=== PATIENT | male | born 1955 | race Caucasian/White ===

== ENCOUNTER 2016-08-06 13:31 | Outpatient (CLI) | payer BC ==
[~2016-08-06] VITALS: Ht 172.7 cm; Wt 100.7 kg
[2016-08-06 13:40] VITALS: BP 157/94
[2016-08-06] MEDS ORDERED: LORA10TA76 PO (15:57)
[2016-08-06] MEDS ORDERED: FLUT9.9S16 NSEACH (15:57)
[2016-08-06] MEDS ORDERED: CALC-654 PO (15:57)
[2016-08-06] MEDS ORDERED: OMG1KC PO (15:57)
[2016-08-06] MEDS ORDERED: DOCU100T7 PO (15:57)
[2016-08-06] MEDS ORDERED: ASPI-586 PO (15:57)
[2016-08-06] MEDS ORDERED: SAW450CA4 PO (15:57)
[2016-08-06] MEDS ORDERED: LISI-552 PO (15:57)
[2016-08-06] MEDS ORDERED: LATA2.5D5 OU (15:57)
== END 2016-08-06 13:55 | disposition home or self-care (01) ==
LOC: PREOP 13:31
PROVIDERS: ATTEND Orthopaedic Surgery
DX: Z01.818 Encounter for other preprocedural examination (principal); Z11.2 Encounter for screening for other bacterial diseases; S43.432A Superior glenoid labrum lesion of left shoulder, initial encounter
CPT/HCPCS: 87081

== ENCOUNTER 2016-08-13 06:00 | Day surgery (SDC) | payer BC ==
--- NOTE | 2016-08-05 11:04 | HISTORY AND PHYSICAL ---
DATE OF SERVICE: 08/13/2016 REASON FOR ADMISSION: Outpatient surgery for left shoulder arthroscopy. HISTORY OF PRESENT ILLNESS: The patient is a 60-year-old right-hand dominant gentleman with complaints of pain in his left shoulder, worse with overhead activities. He underwent an MRI which revealed a superior labral tear. He has undergone treatment with rest, activity modification, anti-inflammatories and injections without relief. Due to functional impairment, the patient has elected to proceed with surgical intervention. REVIEW OF SYSTEMS: No chest pain, no shortness of breath, no dysuria. PAST MEDICAL HISTORY: Hypertension, glaucoma, allergies, aortic aneurysm, reflux. PAST SURGICAL HISTORY: Cholecystectomy. FAMILY HISTORY: Significant for coronary artery disease. PRIMARY CARE: Dr. Babatunde Diehl. MEDICATIONS: Lisinopril, aspirin, fish oil, Naprosyn, Flonase, Claritin, ranitidine, saw palmetto. ALLERGIES: No known drug allergies. SOCIAL HISTORY: The patient is a former smoker. Denies alcohol use. PHYSICAL EXAMINATION: GENERAL: The patient is well-developed, well-nourished, in no acute distress. HEENT: Normocephalic, atraumatic. Pupils are equal, round and reactive to light. Oropharynx is clear. NECK: Supple. No lymphadenopathy. LUNGS: Clear to auscultation bilaterally. HEART: Regular rate and rhythm. ABDOMEN: Soft, nontender, nondistended. EXTREMITIES: Left shoulder demonstrates no atrophy, no skin lesions are noted. He has a mildly positive Neer and Mcfarland sign. No gross weakness with abduction, external or internal rotation. He has positive [place]'s maneuver, which reproduces his symptoms. IMPRESSION: Left shoulder superior labral anterior posterior tear. PLAN: Left shoulder arthroscopic biceps tenotomy. The risks, benefits, options, ramifications and recovery were discussed at length with the patient. He understands and wishes to proceed. Job ID: [id number] DocumentID: [id number] Dictated Date: 08/05/2016 09:38:45 Television Engineering Teacher Date: 08/05/2016 11:04:20 Dictated By: TARA MERCEDES MD
[~2016-08-13] VITALS: Ht 172.7 cm; Wt 100.7 kg
[~2016-08-13 06:00] MED LIST: ASPI-586 PO; CALC-654 PO; DOCU100T7 PO; FLUT9.9S16 NSEACH; LATA2.5D5 OU; LISI-552 PO; LORA10TA76 PO; OMG1KC PO; SAW450CA4 PO
[2016-08-13] MEDS ORDERED: LACTATED RINGERS 1,000 ML IV PRN (06:41)
[2016-08-13] MEDS ORDERED: DEXAMETHASONE PF 10 MG/ML (DECADRON) VIAL ONE (06:42)
[2016-08-13] MEDS ORDERED: LACTATED RINGERS 1,000 ML IV ONE (06:42)
[2016-08-13] MEDS ORDERED: MIDAZOLAM 2 MG/2 ML (VERSED) VIAL ONE (06:42)
[2016-08-13] MEDS ORDERED: proPOfol 200 MG/20 ML (DIPRIVAN) VIAL IV ONE (06:42)
[2016-08-13] MEDS ORDERED: LIDOCAINE PF 2% 10 ML (XYLOCAINE) AMP ONE (06:42)
[2016-08-13] MEDS ORDERED: fentaNYL INJECTION 100 MCG/2 ML AMP ONE (06:42)
[2016-08-13] MEDS ORDERED: ONDANSETRON 4 MG/2 ML (SDV) Z0FRAN ONE ×2 (06:42→08:47)
[2016-08-13] MEDS ORDERED: ROCURONIUM 50 MG/5 ML (ZEMURON) VIAL IV ONE (06:42)
[2016-08-13] MEDS ORDERED: NS (IVPB) 50 ML ONE (07:12)
[2016-08-13] MEDS ORDERED: ceFAZolin 1,000 MG (ANCEF) VIAL ONE (07:12)
[2016-08-13] MEDS ORDERED: BUPIVACAINE 0.25% 30 ML (SENSORCAINE) VIAL ONE (07:17)
[2016-08-13] MEDS ORDERED: morphine PF (DURAMORPH) 10 MG/10 ML AMP ONE (07:17)
--- NOTE | 2016-08-13 07:29 | Progress Note-Pre Operative ---
Pre-Operative Progress Note H&P Reviewed The H&P was reviewed, patient examined and no changes noted. Date H&P Reviewed: August 13, 2016 Time H&P Reviewed: 07:11 Pre-Operative Diagnosis: left shoulder SLAP tear TARA MERCEDES MD August 13, 2016 07:29
--- NOTE | 2016-08-13 07:30 | Progress Note-Post Operative ---
Post-Operative Progess Note Surgeon (s)/Medical Director/Head Team Physician (s) Surgeon TARA MERCEDES MD Medical Director/Head Team Physician: none Pre-Operative Diagnosis left shoulder SLAP tear and impingement Post-Operative Diagnosis left shoulder SLAP tear, labral tear and impingement Procedure & Operative Findings Date of Procedure 08/13/16 Procedure Performed/Findings left shoulder arthroscopic biceps tenotomy, labral debridement and acromioplasty Anesthesia Type GETA Estimated Blood Loss Estimated blood loss (mL): minimal Specimens/Packing Specimens Removed none Packing: none TARA MERCEDES MD August 13, 2016 07:30
[2016-08-13 07:34] VITALS: BP 167/101
[2016-08-13] MEDS ORDERED: oxyCODONE/APAP 5/325MG (PERCOCET 5) TABLET PO PRN (07:45)
[2016-08-13] MEDS ORDERED: ceFAZolin 1 GM/NS 50 ML IVPB IV ONE ×2 (08:00)
[2016-08-13] MEDS ORDERED: GLYCOPYRROLATE 0.2 MG/ML (ROBINUL) 2 ML VIAL ONE (08:14)
[2016-08-13] MEDS ORDERED: NEOSTIGMINE (BLOXIVERZ ) 1 MG/1ML 10 ML VIAL ONE (08:14)
[2016-08-13] MEDS ORDERED: SEVOFLURANE (ULTANE) 15 ML INHAL SOLN ONE (08:38)
[2016-08-13] MEDS ORDERED: ONDANSETRON 4 MG/2 ML (SDV) Z0FRAN IVP PRN (08:45)
[2016-08-13] MEDS ORDERED: morphine INJ 10 MG/ML 1ML (SYR OR VIAL) ONE (08:47)
[2016-08-13] MEDS: morphine INJ 10 MG/ML 1ML (SYR OR VIAL) IVP PRN ×2 (08:58→09:06)
[2016-08-13 09:30] VITALS: BP 122/90
[2016-08-13 10:00] VITALS: BP 128/87
[2016-08-13 10:30] VITALS: BP 122/87
[2016-08-13] MEDS ORDERED: OXYC-471 PO (10:35)
--- NOTE | 2016-08-13 14:15 | OPERATIVE REPORT ---
DATE OF SERVICE: 08/13/2016 PREOPERATIVE DIAGNOSES: 1. Left shoulder slap tear. 2. Left shoulder impingement. POSTOPERATIVE DIAGNOSES: 1. Left shoulder slap tear. 2. Left shoulder impingement. 3. Left shoulder labral tear. PROCEDURES PERFORMED: 1. Left shoulder arthroscopic biceps tenotomy. 2. Left shoulder arthroscopic labral debridement. 3. Left shoulder arthroscopic acromioplasty. SURGEONS: Nathan Mercedes MD PULVERIZER: None. ANESTHESIA: General endotracheal by Tia Johnson CRNA ESTIMATED BLOOD LOSS: Minimal. DRAINS: None. COMPLICATIONS: None. POSTOPERATIVE PLAN: Sling for comfort with progressive range of motion as symptoms allow. The patient is transported to the recovery room, awake and in stable condition. STATEMENT OF MEDICAL NECESSITY: The patient is a 60-year-old, right hand dominant gentleman with complaints of left shoulder pain, worse with overhead activities. He had a positive [place]'s maneuver, positive Neer and Hawkin sign. An MRI revealed a type 2 slap tear and findings consistent with impingement and due to failure to improve with conservative measures and functional impairment, the patient elected to proceed with surgical intervention. Examination under anesthesia revealed forward elevation of 170 degrees, external rotation 90 degrees and internal rotation of 80 degrees. Arthroscopic findings demonstrate a type 2 slap tear. There was a flap tear at the anterior labrum from the 10 to 11 o'clock positions. The remainder of the labrum was intact. There was no significant glenoid or humeral head articular wear. The subacromial space demonstrates dense bursitis with sloping of the anterolateral acromion. No rotator cuff tear was noted on the bursal or articular side. PROCEDURE IN DETAIL: After risks and benefits of procedure were discussed and questions were answered, an informed consent was signed, placed on chart. The operative site was confirmed in the preoperative holding area initialed by the surgeon. The patient was then transferred to the operating room and after adequate levels of general endotracheal anesthetic were obtained, a timeout was called, confirmed the operative site. Examination under anesthesia was performed with above findings noted. The left shoulder and upper extremity were prepped and draped in the usual sterile fashion. Shoulder joint was injected with 20 mL of fluid as was the subacromial space. Standard posterior portal was placed and under direct visualization, the anterior portal was created in the interval between the biceps, subscapularis and glenoid. A diagnostic arthroscopy was carried out with above findings noted. The biceps anchor was released and the stump was debrided with a shaver. The anterior labral flap was debrided with the shaver back to stable edges. The scope was then redirected into the subacromial space and the lateral portal was created. Bursectomy was performed and the acromion was planed to a flat type 1 acromion. Subacromial space was copiously irrigated. Port sites were closed with 3-0 nylon, simple interrupted fashion. Shoulder was injected with Duramorph. Port sites infiltrated with plain Marcaine and soft dressing and sling were applied. The patient was transferred through recovery room, awake and in stable condition. Job ID: [id number] DocumentID: [id number] Dictated Date: 08/13/2016 08:32:52 Atmospheric Physicist Date: 08/13/2016 13:32:30 Dictated By: NATHAN MERCEDES MD
== END 2016-08-13 11:00 | disposition home or self-care (01) ==
LOC: SDC 06:00
PROVIDERS: ATTEND Orthopaedic Surgery
DX: S43.432A Superior glenoid labrum lesion of left shoulder, initial encounter (principal); M25.812 Other specified joint disorders, left shoulder; I10 Essential (primary) hypertension; I71.9 Aortic aneurysm of unspecified site, without rupture; K21.9 Gastro-esophageal reflux disease without esophagitis; Z79.899 Other long term (current) drug therapy

== ENCOUNTER → 2017-06-09 | Outpatient (CLI) | payer BC ==
[~2017-06-09] MED LIST changes: +OXYC-471 PO; -SAW450CA4 PO; +SAW450CA7 PO
== END ==
LOC: CARD 10:43
PROVIDERS: ATTEND Family Medicine
DX: R07.9 Chest pain, unspecified (principal); I27.20 Pulmonary hypertension, unspecified; I34.0 Nonrheumatic mitral (valve) insufficiency
CPT/HCPCS: 93306

== ENCOUNTER → 2017-10-27 | Outpatient (CLI) | payer BC ==
--- NOTE | 2017-10-27 10:40 | Diagnostic Imaging Report ---
CHEST PA/LAT (2 VIEW) Indication: Shortness of air on exertion. Comparison: None available. Findings: No focal pneumonic consolidation, pleural effusion or pneumothorax. Normal heart size and pulmonary vasculature. Impression: No acute cardiopulmonary process. Attempt was made to call report to the provider number ([phone]) but this number is disconnected. Dictated by: Dictated on workstation # [id number]
== END ==
LOC: RAD 10:09
PROVIDERS: ATTEND Nurse Practitioner Family
DX: R07.9 Chest pain, unspecified (principal); R06.00 Dyspnea, unspecified
CPT/HCPCS: 71046

== ENCOUNTER 2018-02-05 06:12 | Outpatient (CLI) | payer BC ==
[~2018-02-05] VITALS: Ht 172.7 cm; Wt 86.2 kg
[2018-02-05] MEDS ORDERED: VALS320T15 PO (14:56)
[2018-02-05] MEDS ORDERED: AMLO2.5T3 PO (14:56)
== END 2018-02-05 15:03 | disposition home or self-care (01) ==
LOC: PREOP 06:12
PROVIDERS: ATTEND Surgery
DX: Z01.818 Encounter for other preprocedural examination (principal)

== ENCOUNTER 2018-02-10 09:17 | Day surgery (SDC) | payer BC ==
[~2018-02-10] VITALS: Ht 172.7 cm; Wt 86.2 kg
[~2018-02-10 09:17] MED LIST changes: +AMLO2.5T3 PO; +VALS320T15 PO
--- NOTE | 2018-02-10 09:20 | Progress Note-Pre Operative ---
Pre-Operative Progress Note H&P Reviewed The H&P was reviewed, patient examined and no changes noted. Date Seen by Provider: Feb 04, 2018 Time Seen by Provider: 11:20 Date H&P Reviewed: Feb 10, 2018 Time H&P Reviewed: 09:20 Pre-Operative Diagnosis: sebaceous cysts left side of neck ALLISON PERRY MD Feb 10, 2018 09:20
--- OUTSIDE RECORDS SUMMARY | 2018-02-10 09:21 | XMS REPORT ---
Author Author Christiano Flannery Organization [facility] Address [address] [place], [place] [address] Care Team Providers Care Tower Climber Name Role Phone Christiano Flannery PCP Unavailable Veronica Diehl PreferredProvider Allergies and Adverse Reactions Name Reaction Notes NO KNOWN DRUG ALLERGIES Plan of Treatment Planned Activity Comments Planned Date Planned Time Plan/Goal PSA TOTAL 09/24/2016 12:00 AM Medications Active Name Start Date Estimated Completion Date SIG Comments aspirin 81 mg oral tablet,delayed release (DR/EC) take 1 tablet (81 mg) by oral route once daily for 30 days lisinopril 20 mg oral tablet take 1 tablet (20 mg) by oral route once daily naproxen 500 mg oral tablet take 1 tablet (500 mg) by oral route 2 times per day with food Fish Oil 300-1,000 mg oral capsule take 1 capsule by oral route daily latanoprost 0.005 % ophthalmic drops instill 1 drop into both eyes by ophthalmic route once daily in the evening Proctofoam HC 1-1 % rectal foam 12/03/2015 insert 1 applicatorful by rectal route 2 times a day Name Start Date Expiration Date SIG Comments lisinopril-hydrochlorothiazide 20-12.5 mg oral tablet 05/04/2013 10/31/2013 take 2 tablets by oral route daily for 30 days Problem List Description Status Onset Hypertension Active 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 Abnormal PSA Active 11/07/2015 Rectal pain Active 12/04/2015 Abnormal PSA Active 12/24/2015 Elevated prostate specific antigen [PSA] Active 09/24/2016 Vital Signs Date Time BP-Sys(mm[Hg] BP-Chaya(mm[Hg]) HR(bpm) RR(rpm) Temp WT HT HC BMI BSA BMI Percentile O2 Sat(%) 09/24/2016 9:44:00 AM 152 mmHg 104 mmHg 60 bpm 18 rpm 225 lbs 68 in 34.21 kg/m2 2.21 m2 100 % 04/15/2016 8:49:00 AM 142 mmHg 72 mmHg 55 bpm 18 rpm 98.7 F 225 lbs 68 in 34.2108 kg/m 2.2128 m 99 % 12/24/2015 11:00:00 AM 158 mmHg 100 mmHg 61 bpm 18 rpm 98.3 F 225 lbs 68 in 34.21 kg/m2 2.21 m2 98 % 12/03/2015 9:09:00 AM 142 mmHg 96 mmHg 50 bpm 20 rpm 96.6 F 100 % 11/07/2015 11:01:00 AM 160 mmHg 102 mmHg 55 bpm 18 rpm 97.1 F 225 lbs 68 in 34.21 kg/m2 2.21 m2 100 % 10/08/2015 10:25:00 AM 190 mmHg 112 mmHg 52 bpm 20 rpm 97 F 228 lbs 68 in 34.6669 kg/m 2.2275 m 100 % 10/08/2015 10:25:00 AM 182 mmHg 114 mmHg 05/18/2013 2:48:00 PM 118 mmHg 70 mmHg 05/04/2013 9:00:00 AM 160 mmHg 100 mmHg 54 bpm 18 rpm 98.2 F 216 lbs 68 in 32.84 kg/m2 2.17 m2 99 % 09/24/2012 8:28:00 AM 148 mmHg 98 mmHg 65 bpm 16 rpm 97.1 F 220 lbs 98 % 09/15/2012 2:17:00 PM 172 mmHg 96 mmHg 59 bpm 16 rpm 97.5 F 223 lbs 68.75 in 33.17 kg/m2 2.22 m2 99 % Social History Name Description Comments Single associates degree Tobacco Current every day smoker Denies illicit substance abuse Active but no formal exercise Sales Did not serve in Children Lives with roommate History of Procedures Date Ordered Description Order Status 11/07/2015 1:01 PM URINALYSIS AUTO W/O SCOPE Reviewed 12/24/2015 11:50 AM URINALYSIS AUTO W/O SCOPE Reviewed 04/07/2016 12:00 AM ASSAY OF PSA TOTAL Reviewed 09/24/2016 10:56 AM URINALYSIS AUTO W/O SCOPE Reviewed 09/15/2012 12:00 AM COMPREHEN METABOLIC PANEL Reviewed 09/15/2012 12:00 AM LIPID PANEL Reviewed 09/15/2012 12:00 AM ASSAY THYROID STIM HORMONE Reviewed 09/15/2012 12:00 AM COMPLETE CBC W/AUTO DIFF WBC Reviewed 09/15/2012 12:00 AM ELECTROCARDIOGRAM COMPLETE Reviewed 05/18/2013 12:00 AM Blood Pressure Check-no charge Reviewed Results Summary Date and Description Results 09/15/2012 2:23 PM Colonoscopy-Women and Men over 50 Declined 09/15/2012 3:00 PM WBC 9.1 RBC 5.27 HGB 15.40 g/dLHCT 43.50 %MCV 83.0 fLMCH 29.20 pgMCHC 35.40 g/dLRDW SD 42 RDW CV 13.90 %MPV 11.10 fLPLT 210 NRBC# 0.00 NRBC% 0.0 %NEUT 58.10 %%LYMP 32.50 %%MONO 6.40 %%EOS 2.60 %%BASO 0.40 %#NEUT 5.29 #LYMP 2.96 #MONO 0.58 #EOS 0.24 #BASO 0.04 MANUAL DIFF NOT IND GLUCOSE 91.0 mg/dLSODIUM 139.0 mmol/LPOTASSIUM 3.70 mmol/LCHLORIDE 104.0 mmol/LCO2 23.0 mmol/LBUN 18.0 mg/dLCREATININE 0.90 mg/dLSGOT/AST 14.0 IU/LSGPT/ALT 17.0 IU/ LALK PHOS 61.0 IU/LTOTAL PROTEIN 7.50 g/dLALBUMIN 4.30 g/dLTOTAL BILI 0.80 mg/ dLCALCIUM 9.60 mg/dLAGE 56 GFR NonAA 87 GFR AA 105 eGFR 60 eGFR AA* 60 TRIGLYCERIDES 110.0 mg/dLCHOLESTEROL 159.0 mg/dLHDL 47.0 mg/dLTOT CHOL/HDL 3.4 LDL (CALC) 90.0 mg/dLTSH 2.180 uIU/mL 11/07/2015 1:01 PM Clarity Ur CLEAR Color Ur --------- Glucose Ur-sCnc -VE Bilirub Ur Ql Strip -VE Ketones Ur Ql Strip -VE Sp Gr Ur Qn 1020 Hgb Ur Ql Strip -VE pH Ur-LsCnc 6.0 Prot Ur Ql Strip -VE Urobilinogen Ur-mCnc -VE Nitrite Ur Ql Strip -VE WBC Est Ur Ql Strip RARE 12/24/2015 11:50 AM Clarity Ur CLEAR Color Ur Glucose Ur-sCnc -VE Bilirub Ur Ql Strip -VE Ketones Ur Ql Strip -VE Sp Gr Ur Qn 1015 Hgb Ur Ql Strip + pH Ur-LsCnc 6.0 04/07/2016 12:10 PM PSA TOTAL 6.940 ng/mL 09/24/2016 10:56 AM Clarity Ur CLEAR Color Ur -VE Glucose Ur-sCnc -VE Bilirub Ur Ql Strip -VE Ketones Ur Ql Strip -VE Sp Gr Ur Qn 1-15 Hgb Ur Ql Strip +++ pH Ur-LsCnc 6.0 Prot Ur Ql Strip -VE Urobilinogen Ur-mCnc -VE Nitrite Ur Ql Strip - VE WBC Est Ur Ql Strip -VE History Of Immunizations Name Date Admin Mfg Name Mfg Code Trade Name Lot# Route Inj Vis Given Vis Pub CVX Influenza 02/22/2014 Not Entered NE Afluria Not Entered Not Entered 03/23/201611/08/2013 141 History of Past Illness Name Date of Onset Comments Hypertension Adenofibromatous hypertrophy of prostate 11/07/2015 Abnormal PSA 12/24/2015 Rectal pain 12/04/2015 Elevated prostate specific antigen [PSA] 09/24/2016 Essential Hypertension Sep 15 2012 2:25PM Fatigue Sep 15 2012 2:25PM Chest Pain Sep 15 2012 2:25PM Screening for Ischemic Heart Disease Sep 15 2012 2:25PM Essential Hypertension Sep 24 2012 8:30AM Fatigue Sep 24 2012 8:30AM Hypertension May 04 2013 9:02AM Hypertension, Benign Essential May 18 2013 2:48PM Colon Cancer Screening Oct 08 2015 10:26AM Constipation Oct 08 2015 10:26AM Abnormal PSA Nov 07 2015 11:04AM Adenofibromatous hypertrophy of prostate Nov 07 2015 11:04AM Elevated PSA Nov 28 2015 8:23AM Abnormal PSA Nov 28 2015 11:57AM Rectal pain Nov 28 2015 11:57AM Adenofibromatous hypertrophy of prostate Nov 28 2015 11:57AM Anal Fissure Dec 03 2015 9:10AM Adenofibromatous hypertrophy of prostate Dec 24 2015 11:04AM Abnormal PSA Dec 24 2015 11:04AM Adenofibromatous hypertrophy of prostate Apr 07 2016 7:53AM Abnormal PSA Apr 07 2016 7:53AM Abnormal PSA Apr 15 2016 8:52AM Adenofibromatous hypertrophy of prostate Apr 15 2016 8:52AM Elevated prostate specific antigen [PSA] Sep 24 2016 9:47AM Adenofibromatous hypertrophy of prostate Sep 24 2016 9:47AM BPH (benign prostatic hypertrophy) Sep 24 2016 10:08AM Elevated PSA Sep 24 2016 10:08AM Payers Insurance Name Company Name Plan Name Plan Number Policy Number Policy Group Number [id number]/A History of Encounters Visit Date Visit Type Provider 09/24/2016 Office visit V Haroon Flannery MD 04/15/2016 Office visit V Haroon Flannery MD 12/24/2015 Office visit V Haroon Flannery MD 12/14/2015 Hospital V Haroon Flannery MD 12/03/2015 Office visit 12/03/2015 Office visit Nathan Kramer MD 11/28/2015 Procedures V Haroon Flannery MD 11/08/2015 Hospital Nathan Kramer MD 11/07/2015 Office visit V Haroon Flannery MD 10/08/2015 Office visit Nathan Kramer MD 05/18/[address] MD 05/04/[address] MD 09/24/2012 Office visit Sugey Pham MD 09/15/2012 Voided Sugey Pham MD 09/15/2012 Office visit Sugey Pham MD 09/15/2012 [facility] Reema Henriquez MD
--- OUTSIDE RECORDS SUMMARY | 2018-02-10 09:22 | XMS REPORT ---
Author Author Christiano Flannery Organization [facility] Address [address] [place], [place] [address] Care Team Providers Care Behavioral Scientist Name Role Phone Christiano Flannery PCP Unavailable Veronica Diehl PreferredProvider Allergies and Adverse Reactions Name Reaction Notes NO KNOWN DRUG ALLERGIES Plan of Treatment Planned Activity Comments Planned Date Planned Time Plan/Goal PSA TOTAL 03/18/2017 12:00 AM Medications Active Name Start Date [...] AM ASSAY OF PSA TOTAL Reviewed 09/24/2016 12:00 AM ASSAY OF PSA TOTAL Reviewed [...] Results Summary Date and Description Results 09/15/2012 3:00 PM WBC 9.1 RBC 5.27 [...] 12:10 PM PSA TOTAL 6.940 ng/mL 09/24/2016 10:30 AM PSA TOTAL 6.390 ng/mL 09/24/2016 10:56 AM Clarity Ur CLEAR [...] 10:08AM Elevated PSA Sep 24 2016 10:08AM Adenofibromatous hypertrophy of prostate Mar 18 2017 10:04AM Elevated PSA Mar 18 2017 10:04AM Payers Insurance Name Company Name Plan Name Plan Number Policy Number Policy Group Number [facility] Date [id number] N/A History of Encounters Visit Date Visit Type Provider 09/24/2016 Office visit V Haroon Flannery MD 04/15/2016 Office visit V Haroon Flannery MD 12/24/2015 Office visit V Haroon Flannery MD 12/14/2015 Hospital V Haroon Flannery MD 12/03/2015 Office visit 12/03/2015 Office visit Nathan Kramer MD 11/28/2015 Procedures V Haroon Flannery MD 11/08/2015 [facility] Nathan Kramer MD 11/07/2015 Office visit V Haroon Flannery MD 10/08/2015 Office visit Nathan Kramer MD 05/18/[address] MD 05/04/[address] MD 09/24/2012 Office visit Sugey Pham MD 09/15/2012 Voided Sugey Pham MD 09/15/2012 Office visit Sugey Pham MD 09/15/2012 [facility] Reema Henriquez MD
--- OUTSIDE RECORDS SUMMARY | 2018-02-10 09:22 | XMS REPORT ---
Author Author Christiano Flannery Organization [facility] Address [address] [place], [place] [id number] Care Team Providers Care Fruit Or Nut Picker Name Role Phone Christiano Flannery PCP Unavailable Veronica Diehl PreferredProvider Allergies and Adverse Reactions Name Reaction Notes NO KNOWN DRUG ALLERGIES Plan of Treatment Not available. Medications Active Name Start Date Estimated Completion [...] Elevated prostate specific antigen [PSA] Active 09/24/2016 Abnormal prostate specific antigen test Active 03/27/2017 Vital Signs Date Time BP-Sys(mm[Hg] BP-Chaya(mm[Hg]) HR(bpm) RR(rpm) Temp WT HT HC BMI BSA BMI Percentile O2 Sat(%) 03/27/2017 8:01:00 AM 132 mmHg 94 mmHg 62 bpm 18 rpm 215 lbs 68 in 32.69 kg/m2 2.16 m2 97 % 09/24/2016 9:44:00 AM 152 mmHg 104 mmHg 60 bpm 18 rpm 225 lbs 68 in 34.2108 kg/m 2.2128 m 100 % 04/15/2016 8:49:00 AM 142 mmHg 72 mmHg 55 bpm 18 rpm 98.7 F 225 lbs 68 in 34.21 kg/m2 2.21 m2 99 % 12/24/2015 11:00:00 AM 158 mmHg 100 mmHg 61 bpm 18 rpm 98.3 F 225 lbs 68 in 34.2108 kg/m 2.2128 m 98 % 12/03/2015 9:09:00 AM 142 mmHg 96 mmHg 50 bpm 20 rpm 96.6 F 100 % 11/07/2015 11:01:00 AM 160 mmHg 102 mmHg 55 bpm 18 rpm 97.1 F 225 lbs 68 in 34.2108 kg/m 2.2128 m 100 % 10/08/2015 10:25:00 AM 190 mmHg 112 mmHg 52 bpm 20 rpm 97 F 228 lbs 68 in 34.67 kg/m2 2.23 m2 100 % 10/08/2015 10:25:00 AM 182 mmHg [...] 10:56 AM URINALYSIS AUTO W/O SCOPE Reviewed 03/18/2017 12:00 AM ASSAY OF PSA TOTAL Reviewed 03/27/2017 11:13 AM URINALYSIS AUTO W/O SCOPE Reviewed 09/15/2012 [...] VE WBC Est Ur Ql Strip -VE 03/18/2017 11:40 AM PSA TOTAL 6.410 ng/mL 03/27/2017 11:13 AM Clarity Ur CLEAR Color Ur -- Glucose Ur-sCnc -VE Bilirub Ur Ql Strip -VE Ketones Ur Ql Strip -VE Sp Gr Ur Qn 1015 Hgb Ur Ql Strip -VE pH Ur- LsCnc 5.5 Prot Ur Ql Strip -VE Urobilinogen Ur-mCnc -VE Nitrite Ur Ql Strip -VE WBC Est Ur Ql Strip -VE History Of Immunizations Name Date Admin [facility] Name [facility] Code Trade Name Lot# Route Inj Vis Given Vis Pub CVX Influenza 02/22/2014 Not Entered NE Afluria Not Entered Not Entered 03/23/201711/08/2013 141 History of Past Illness Name Date of Onset Comments Hypertension Adenofibromatous hypertrophy of prostate 11/07/2015 Abnormal PSA 12/24/2015 Rectal pain 12/04/2015 Elevated prostate specific antigen [PSA] 09/24/2016 Abnormal prostate specific antigen test 03/27/2017 Essential Hypertension Sep 15 2012 2:25PM Fatigue [...] 10:04AM Elevated PSA Mar 18 2017 10:04AM Abnormal prostate specific antigen test Mar 27 2017 8:04AM Adenofibromatous hypertrophy of prostate Mar 27 2017 8:04AM Payers Insurance Name Company Name Plan Name Plan Number Policy Number Policy Group Number [id number]/A History of Encounters Visit Date Visit Type Provider 03/27/2017 Office visit Christiano Flannery MD 09/24/2016 Office visit Christiano Flannery MD 04/15/2016 Office visit Christiano Flannery MD 12/24/2015 Office visit Christiano Flannery MD 12/14/2015 Hospital Christiano Flannery MD 12/03/2015 Office visit 12/03/2015 Office visit Nathan Kramer MD 11/28/2015 Procedures Christiano Flannery MD 11/08/2015 [facility] Nathan Kramer MD 11/07/2015 Office visit Christiano Flannery MD 10/08/2015 Office visit Nathan Kramer MD 05/18/[address] MD 05/04/[address] MD 09/24/2012 Office visit Sugey Pham MD 09/15/2012 Voided Sugey Pham MD 09/15/2012 Office visit Sugey Pham MD 09/15/2012 [facility] Nadeem Henriquez MD
--- OUTSIDE RECORDS SUMMARY | 2018-02-10 09:23 | XMS REPORT ---
Author Author Christiano Flannery Organization [facility] Address [address] [place], [place] [address] Care Team Providers Care Button Maker And Installer Name Role Phone Christiano lFannery PCP Unavailable Veronica Diehl PreferredProvider Allergies and [...] pain Active 12/04/2015 Abnormal PSA Active 12/24/2015 Vital Signs Date Time BP-Sys(mm[Hg] BP-Chaya(mm[Hg]) HR(bpm) RR(rpm) Temp WT HT HC BMI BSA BMI Percentile O2 Sat(%) 04/15/2016 8:49:00 AM 142 mmHg 72 mmHg [...] rpm 97.5 F 223 lbs 68.75 in 33.1709 kg/m 2.22 m2 99 % Social History Name [...] 12:00 AM ASSAY OF PSA TOTAL Reviewed 09/15/2012 12:00 AM COMPREHEN METABOLIC PANEL [...] 04/07/2016 12:10 PM PSA TOTAL 6.940 ng/mL History Of Immunizations Name Date Admin Mfg Name Mfg Code Trade Name Lot# Route Inj Vis Given Vis Pub CVX Influenza 02/22/2014 Not Entered NE Afluria Not Entered Not Entered 03/23/201611/08/2013 141 History of Past Illness Name Date of Onset Comments Hypertension Adenofibromatous hypertrophy of prostate 11/07/2015 Abnormal PSA 12/24/2015 Rectal pain 12/04/2015 Essential Hypertension Sep 15 2012 2:25PM Fatigue [...] hypertrophy of prostate Apr 15 2016 8:52AM Payers Insurance Name Company Name Plan Name Plan Number Policy Number Policy Group Number [id number] History of Encounters Visit Date Visit Type Provider 04/15/2016 Office visit Christiano Flannery MD 12/24/2015 Office visit Christiano Flannery MD 12/14/2015 Hospital Christiano Flannery MD 12/03/2015 Office visit 12/03/2015 Office visit Nathan Kramer MD 11/28/2015 Procedures Christiano Flannery MD 11/08/2015 Hospital Nathan Kramer MD 11/07/2015 Office visit Christiano Flannery MD 10/08/2015 Office visit Nathan Kramer MD 05/18/[address] MD 05/04/[address] MD 09/24/2012 Office visit Sugey Pham MD 09/15/2012 Voided Sugey Pham MD 09/15/2012 Office visit Sugey Pham MD 09/15/2012 [facility] Nadeem Henriquez MD
--- OUTSIDE RECORDS SUMMARY | 2018-02-10 09:24 | XMS REPORT ---
Author Author Christiano Flannery Organization [facility] Address [address] [place], [place] [id number] Care Team Providers Care Elevated Work Platform Operator Name Role Phone Christiano Flannery PCP Unavailable [...] Number Policy Group Number Start Date [facility]BS [facility] [id number] N/A History of Encounters Visit Date Visit Type Provider 09/24/2016 Office visit V Haroon Flannery MD 04/15/2016 Office visit Christiano Flannery MD 12/24/2015 Office visit Christiano Flannery MD 12/14/2015 Hospital Christiano Flannery MD 12/03/2015 Office visit 12/03/2015 Office visit Nathan Kramer MD 11/28/2015 Procedures Christiano Flannery MD 11/08/2015 [facility] Nathan Kramer MD 11/07/2015 Office visit Christiano Flannery MD 10/08/2015 Office visit Nathan Kramer MD 05/18/2013 Nurse visit Adeola Wya MD 05/04/[address] MD 09/24/2012 Office visit Sugey Pham MD 09/15/2012 Voided Sugey Pham MD 09/15/2012 Office visit Sugey Pham MD 09/15/2012 [facility] Nadeem Henriquez MD
[2018-02-10] MEDS ORDERED: BUP/EPI 0.5% 1:200,000 (SENSORCAINE) 30 ML VIAL ONE (09:26)
[2018-02-10] MEDS ORDERED: ONDANSETRON 4 MG/2 ML (SDV) Z0FRAN ONE (09:27)
[2018-02-10] MEDS ORDERED: LIDOCAINE PF 2% 5 ML (XYLOCAINE) VIAL ONE (09:27)
[2018-02-10] MEDS ORDERED: proPOfol 200 MG/20 ML (DIPRIVAN) VIAL IV ONE (09:27)
[2018-02-10] MEDS ORDERED: fentaNYL INJECTION 100 MCG/2 ML AMP ONE (09:28)
[2018-02-10] MEDS ORDERED: MIDAZOLAM 2 MG/2 ML (VERSED) VIAL ONE (09:28)
--- OUTSIDE RECORDS SUMMARY | 2018-02-10 09:28 | XMS REPORT | CCD ---
Author Author [facility] Organization [facility] Address [address] [place] [address] Phone Care Team Providers Care Managed Care Nurse Name Role Phone PP Unavailable CCM Unavailable Summary Purpose Interface Exchange Insurance Providers Payer name Policy type / Coverage type Covered constitution party ID Effective Begin Date Effective End Date Blue Cross Blue Shield [facility] Blue Cross/Blue Shield [id number] 2018 Unknown Family history Grandmother Diagnosis Age At Onset Stroke Unknown Mother Diagnosis Age At Onset Heart Attack Unknown Hypertension Unknown Brother Diagnosis Age At Onset Hypertension Unknown Father Diagnosis Age At Onset Heart Attack Unknown Hypertension Unknown Social History Social History Element Codes Description Effective Dates Marital status Unknown 01/11/2018 Employment Unknown Currently employed [employer] - semi retired 01/11/[address]: 6613079 Former smoker 01/11/[address]: 101350850 Never drinks alcohol 01/11/2018 Allergies, Adverse Reactions, Alerts Substance Reaction Codes Entered Date Inactivated Date Status NO KNOWN DRUG ALLERGIES Unknown 01/11/2018 No Inactive Date Active Past Medical History Illness Codes Condition Status Onset Date Resolved Date Epidermal cyst ICD-9: 706.2 ICD-10: L72.0 Active 01/28/2018 Unknown Essential (primary) hypertension ICD-9: 401.1 ICD-10: I10 Active 01/11/2018 Unknown Cutaneous abscess of neck ICD-9: 682.1 ICD-10: L02.11 Active 01/11/2018 Unknown Synovial cyst of popliteal space [Childers], right knee ICD-9: 727.51 ICD-10: M71.21 Active 01/11/2018 Unknown Problems Condition Codes Effective Dates Condition Status Epidermal cyst ICD-9: 706.2 ICD-10: L72.0 01/28/2018 Active Essential (primary) hypertension ICD-9: 401.1 ICD-10: I10 01/11/2018 Active Cutaneous abscess of neck ICD-9: 682.1 ICD-10: L02.11 01/11/2018 Active Synovial cyst of popliteal space [Childers], right knee ICD-9: 727.51 ICD-10: M71.21 01/11/2018 Active Medications Medication Codes Instructions Start Date Stop Date Status Fill Instructions valsartan 320 mg tablet RxNorm: 497965 1 Tablet(s) PO daily 10/201701/22/2019 Active this repalces his valsartan/hctz mupirocin 2 % topical ointment RxNorm: 420154 1 Application TOP BID 01/11/2018 01/17/2018 Inactive doxycycline hyclate 100 mg tablet RxNorm: 5790079 1 Tablet(s) PO BID 01/11/2018 01/20/2018 Inactive naproxen 500 mg tablet RxNorm: 727640 1 Tablet(s) PO BID 201701/15/2018 Inactive ceftriaxone 500 mg solution for injection RxNorm: 0462716 Inj 01/11/2018 01/11/2018 Inactive [facility] Childrens Aspirin 81 mg chewable tablet RxNorm: 673411 1 Tablet(s) PO daily No Start Date Active amlodipine 2.5 mg tablet RxNorm: 125367 1 Tablet(s) PO daily No Start Date Active Advil 200 mg tablet RxNorm: 790899 1 Tablet(s) PO BID No Start Date Active valsartan 320 mg-hydrochlorothiazide 25 mg tablet RxNorm: 346476 1 Tablet(s) PO daily No Start Date 01/27/2018 Inactive Medication Administered Medication Codes Instructions Start Date Status ceftriaxone 500 mg solution for injection RxNorm: 6949634 01/11/2018 No longer Active Immunizations No Immunization data Assessments Condition Codes Effective Dates Epidermal cyst ICD-10: L72.0 ICD-9: 706.2 01/28/2018 Essential (primary) hypertension ICD-10: I10 ICD-9: 401.1 01/28/2018 Cutaneous abscess of neck ICD-10: L02.11 ICD-9: 682.1 01/11/2018 Synovial cyst of popliteal space [Childers], right knee ICD-10 : M71.21 ICD-9: 727.51 01/11/2018 Reason For Visit Reason For Visit Effective Dates Notes blood pressure followup 01/28/2018 skin lesion 01/11/2018 Results No Results data Review of Systems System Result Effective Dates Constitutional No recent illness 2017 Constitutional No chills 01/28/2018 Constitutional No diaphoresis 01/28/2018 Constitutional No fever 01/28/2018 Eyes No blindness 01/28/2018 Ears/Nose/Throat/Neck nasal allergies 10/2017 Ears/Nose/Throat/Neck No nasal discharge 01/28/2018 Cardiovascular No chest pain/pressure 10/2017 Cardiovascular No dyspnea 01/28/2018 Cardiovascular No edema 01/28/2018 Cardiovascular No palpitations 2017 Respiratory No chest congestion 2017 Respiratory No cough 01/28/2018 Gastrointestinal No abdominal pain 2017 Gastrointestinal No constipation 2017 Gastrointestinal No diarrhea 01/28/2018 Gastrointestinal No gastroesophageal reflux 01/28/2018 Gastrointestinal No hematochezia 2017 Gastrointestinal No melena 01/28/2018 Gastrointestinal No odynophagia 2017 Gastrointestinal No vomiting 01/28/2018 Genitourinary/Nephrology No dysuria 01/28 Dermatologic sores 01/28/2018 Neurologic No alteration of consciousness 01/28/2018 Neurologic No mental status change 2017 Psychiatric No anxiety 01/28/2018 Constitutional No recent illness 2017 Constitutional No chills 01/11/2018 Constitutional No diaphoresis 01/11/2018 Constitutional No fever 01/11/2018 Eyes No eye erythema 01/11/2018 Ears/Nose/Throat/Neck No nasal discharge 01/11/2018 Ears/Nose/Throat/Neck nasal allergies Cardiovascular No chest pain/pressure Cardiovascular No dyspnea 01/11/2018 Cardiovascular No edema 01/11/2018 Cardiovascular No palpitations 2017 Respiratory No cough 01/11/2018 Respiratory No chest congestion 2017 Gastrointestinal No abdominal pain 2017 Gastrointestinal No diarrhea 01/11/2018 Gastrointestinal No constipation 2017 Gastrointestinal No vomiting 01/11/2018 Gastrointestinal No odynophagia 2017 Gastrointestinal No melena 01/11/2018 Gastrointestinal No hematochezia 2017 Gastrointestinal No gastroesophageal reflux 01/11/2018 Genitourinary/Nephrology No dysuria 01/11 Musculoskeletal joint complaint 2017 Dermatologic sores 01/11/2018 Neurologic No alteration of consciousness 01/11/2018 Neurologic No mental status change 2017 Physical Exam Exam Name System Name Item Name Status Result Effective Dates Notes Full Exam - General 1994 Constitutional general appearance Overall: well developed 01/28/2018 None Full Exam - General 1994 Constitutional general appearance Overall: in no acute distress 01/28/2018 None Full Exam - General 1994 Constitutional general appearance Overall: well nourished 01/28/2018 None Full Exam - General 1994 Eyes conjunctiva /eyelids Overall: conjunctiva clear 01/28/2018 None Full Exam - General 1994 Eyes conjunctiva /eyelids Overall: cornea clear 01/28/2018 None Full Exam - General 1994 Eyes conjunctiva /eyelids Overall: eyelids normal 01/28/2018 None Full Exam - General 1994 Eyes pupils and irises Overall: pupils equal, round, reactive to light and accomodation 01/28/2018 None Full Exam - General 1994 Ears/Nose/Throat otoscopic exam Overall: tympanic membranes clear 01/28/2018 None Full Exam - General 1994 Ears/Nose/Throat otoscopic exam External auditory canal: partial cerumen occlusion 01/28/2018 None Full Exam - General 1994 Ears/Nose/Throat lips/teeth/gingiva Overall: benign lips 01/28/2018 None Full Exam - General 1994 Ears/Nose/Throat oral cavity/pharynx/larynx Overall: oral mucosa clear 01/28/2018 None Full Exam - General 1994 Respiratory auscultation Overall: breath sounds clear bilaterally 01/28/2018 None Full Exam - General 1994 Respiratory auscultation Diffuse: diminished 01/28/2018 None Full Exam - General 1994 Respiratory respiratory effort/rhythm Overall: no retractions 01/28/2018 None Full Exam - General 1994 Respiratory respiratory effort/rhythm Overall: normal rate 01/28/2018 None Full Exam - General 1994 Cardiovascular auscultation of heart Overall: regular rate 01/28/2018 None Full Exam - General 1994 Cardiovascular auscultation of heart Overall: normal heart sounds 01/28/2018 None Full Exam - General 1994 Abdomen abdominal exam Overall: no tenderness 01/28/2018 None Full Exam - General 1994 Abdomen abdominal exam Overall: normal bowel sounds 01/28/2018 None Full Exam - General 1994 Musculoskeletal gait and station Overall: normal gait 01/28/2018 None Full Exam - General 1994 Musculoskeletal gait and station Overall: normal station 01/28/2018 None Full Exam - General 1994 Musculoskeletal head and neck Overall: head atraumatic 01/28/2018 None Full Exam - General 1994 Integument inspection of skin Location: face 01/28/2018 left lower jaw Full Exam - General 1994 Integument inspection of skin Consistency: indurated 01/28/2018 None Full Exam - General 1994 Neurologic cranial nerves Overall: crainial nerves 2 - 12 grossly intact 01/28/2018 None Full Exam - General 1994 Psychiatric orientation/consciousness Overall: oriented to person, place and time 01/28/2018 None Full Exam - General 1994 Psychiatric mood and affect Overall: normal mood and affect 01/28/2018 None Full Exam - General 1994 Musculoskeletal lower extremity Palpation - knee: childers' s cyst 01/28/2018 None Full Exam - General 1994 Integument inspection of skin Rash/Lesions: papule 01/28/2018 ulceration in center - healing Full Exam - General 1994 Constitutional general appearance Overall: well developed 01/11/2018 None Full Exam - General 1994 Constitutional general appearance Overall: in no acute distress 01/11/2018 None Full Exam - General 1994 Constitutional general appearance Overall: well nourished 01/11/2018 None Full Exam - General 1994 Eyes pupils and irises Overall: pupils equal, round, reactive to light and accomodation 01/11/2018 None Full Exam - General 1994 Eyes conjunctiva /eyelids Overall: cornea clear 01/11/2018 None Full Exam - General 1994 Eyes conjunctiva /eyelids Overall: conjunctiva clear 01/11/2018 None Full Exam - General 1994 Eyes conjunctiva /eyelids Overall: eyelids normal 01/11/2018 None Full Exam - General 1994 Ears/Nose/Throat otoscopic exam Overall: tympanic membranes clear 01/11/2018 None Full Exam - General 1994 Ears/Nose/Throat otoscopic exam External auditory canal: partial cerumen occlusion 01/11/2018 None Full Exam - General 1994 Ears/Nose/Throat lips/teeth/gingiva Overall: benign lips 01/11/2018 None Full Exam - General 1994 Ears/Nose/Throat oral cavity/pharynx/larynx Overall: oral mucosa clear 01/11/2018 None Full Exam - General 1994 Respiratory respiratory effort/rhythm Overall: normal rate 01/11/2018 None Full Exam - General 1994 Respiratory respiratory effort/rhythm Overall: no retractions 01/11/2018 None Full Exam - General 1994 Respiratory auscultation Overall: breath sounds clear bilaterally 01/11/2018 None Full Exam - General 1995 Respiratory auscultation Diffuse: diminished 01/11/2018 None Full Exam - General 1994 Cardiovascular auscultation of heart Overall: normal heart sounds 01/11/2018 None Full Exam - General 1994 Cardiovascular auscultation of heart Overall: regular rate 01/11/2018 None Full Exam - General 1994 Abdomen abdominal exam Overall: normal bowel sounds 01/11/2018 None Full Exam - General 1994 Abdomen abdominal exam Overall: no tenderness 01/11/2018 None Full Exam - General 1994 Musculoskeletal head and neck Overall: head atraumatic 01/11/2018 None Full Exam - General 1994 Musculoskeletal gait and station Overall: normal station 01/11/2018 None Full Exam - General 1994 Musculoskeletal gait and station Overall: normal gait 01/11/2018 None Full Exam - General 1994 Neurologic cranial nerves Overall: crainial nerves 2 - 12 grossly intact 01/11/2018 None Full Exam - General 1994 Integument inspection of skin Location: face 01/11/2018 left lower jaw Full Exam - General 1994 Integument inspection of skin Rash/Lesions: papule 01/11/2018 draining purulent sanguinous drainage Full Exam - General 1994 Integument inspection of skin Pigmentation: erythematous 01/11/2018 None Full Exam - General 1994 Integument inspection of skin Pigmentation: ecchymosis 01/11/2018 None Full Exam - General 1994 Integument inspection of skin Consistency: indurated 01/11/2018 None Full Exam - General 1994 Psychiatric orientation/consciousness Overall: oriented to person, place and time 01/11/2018 None Full Exam - General 1994 Psychiatric mood and affect Overall: normal mood and affect 01/11/2018 None Full Exam - General 1994 Musculoskeletal lower extremity Palpation - knee: childers' s cyst 01/11/2018 None Procedures Procedure Codes Date ROCEPHIN, PER 250 MG CPT-4: J0696 01/11/2018 Vital Signs Date Vital 01/28/2018 Blood Pressure 1: 138/90 Code : 8480-6 BMI: 29.2 Code : 03649-0 Heart Rate 1 : 84 bpm Height: 5'8" SpO2: 97% Weight: 192 lbs 01/11/2018 Blood Pressure 1: 130/78 Code : 8480-6 BMI: 29.5 Code : 43421-7 Heart Rate 1 : 80 bpm Height: 5'8" SpO2: 97% Weight: 194 lbs Functional Status No Functional Status data History of Present Illness Symptom Name Status Result Effective Date Notes blood pressure followup Quality intermittent 01/28/2018 None blood pressure followup Onset and Resolution ongoing 01/28/2018 None blood pressure followup Onset of Symptom _ years ago 01/28/2018 None blood pressure followup Blood Pressure Values pt checking blood pressure - see scanned document 01/28 None blood pressure followup Pertinent Findings dizziness 01/28/2018 "little lightheaded" at times blood pressure followup Pertinent Findings dyspnea 01/28/2018 "a little" blood pressure followup Triggers stress 01/28/2018 None blood pressure followup Alleviating Factors medication 01/28/2018 None blood pressure followup Exacerbating Factors stress 01/28/2018 None skin lesion Onset and Resolution sudden in onset 01/11/2018 None skin lesion Onset of Symptom 1 weeks ago 01/11/2018 None skin lesion Severity moderate 01/11/2018 None skin lesion Pertinent Findings Denies fever 01/11/2018 None skin lesion Pertinent Findings ecchymotic 01/11/2018 None skin lesion Pertinent Findings Denies facial weakness 01/11/2018 None low back and leg pain Location on the right 01/11/2018 popliteal low back and leg pain Quality dull pain 01/11/2018 None low back and leg pain Quality constant 01/11/2018 None low back and leg pain Pertinent Findings Denies fever 01/11/2018 None Advance Directives No Advance Directive data Encounters Encounter Performer Location Codes Date () EST. PATIENT, LEVEL III Diagnosis: Essential (primary) hypertension[ICD10: I10] Diagnosis: Epidermal cyst[ICD10: L72.0] [facility] CPT- 4: 24369 01/28/2018 OFFICE VISIT, NEW - LEVEL 4 Diagnosis: Essential (primary) hypertension[ICD10: I10] Diagnosis: Cutaneous abscess of neck[ICD10: L02.11] Diagnosis: Synovial cyst of popliteal space [Childers], right knee[ICD10: M71.21] [facility] CPT-4: 63679 01/11/2018 Plan of Care Planned Activity Notes Codes Status Date Care Plan: Referral Order SNOMED-CT : [id number] Pending 01/29/2018 Visit Plan: Hypertension - too well controlled -decrease dose of valsartan from valsartan hctz to plain valsartan, continue with no added salt diet. Pt has been encouraged to exercise daily. The pt has been advised to call the office if there are any acute concerns about change in blood pressure readings at home. Sebaceous cyst - referral to Dr. Rg for removal of the cyst. 01/28/2018 Appointment: [facility] WPtel: [facility] (15 min) Moderate 01/28/2018 Patient Education: Patient Medication Summary Completed 01/28/2018 Visit Plan: Abscess/Cellulitis - The patient was instructed in appropriate wound care. The patient was instructed to use the antibiotic ointment as per RX. The patient is to call for any change in symptoms , increase in size of the lesion, increase in pain. Childers's Cyst/Bursitis - pt to do exercises as directed - stretching, anti-inflammatories to be started after 24 hours, and pt to use heat to the affected sites, pt to call if not improving. 01/11/2018 Visit Plan: Abscess/Cellulitis - The patient was instructed in appropriate wound care. The patient was instructed to use the antibiotic ointment as per RX. The patient is to call for any change in symptoms , increase in size of the lesion, increase in pain. Childers's Cyst/Bursitis - pt to do exercises as directed - stretching, anti-inflammatories to be started after 24 hours, and pt to use heat to the affected sites, pt to call if not improving. 01/11/2018 Appointment: Jacki Serrano WPtel: [address] [place], [place] [id number] New Patient 01/11/2018 Patient Education: Patient Medication Summary Completed 01/11/2018 Referral: Figueroa gR Referral Appointment Requested Instructions Comment follow up appointment with Dr. George in 2-3 weeks. bactroban ointment - to the spot on neck twice a day doxy antibiotic twice a day for 10 days antibiotic shot today let me know if it is not getting any better by Thursday naproxen - twice a day with food x 5 days for the bakers cyst dont take any advil while on the naproxen. . Abscess/Cellulitis - The patient was instructed in appropriate wound care. The patient was instructed to use the antibiotic ointment as per RX. The patient is to call for any change in symptoms, increase in size of the lesion, increase in pain. Childers's Cyst/Bursitis - pt to do exercises as directed - stretching, anti- inflammatories to be started after 24 hours, and pt to use heat to the affected sites, pt to call if not improving. follow up appointment with Dr. George in 2-3 weeks. bactroban ointment - to the spot on neck twice a day doxy antibiotic twice a day for 10 days antibiotic shot today let me know if it is not getting any better by Thursday naproxen - twice a day with food x 5 days for the bakers cyst dont take any advil while on the naproxen. . Abscess/Cellulitis - The patient was instructed in appropriate wound care. The patient was instructed to use the antibiotic ointment as per RX. The patient is to call for any change in symptoms, increase in size of the lesion, increase in pain. Childers's Cyst/Bursitis - pt to do exercises as directed - stretching, anti- inflammatories to be started after 24 hours, and pt to use heat to the affected sites, pt to call if not improving. stop the valsartan hctz - i suspect that the diuretic in this medication is causing you to have low blood pressure when you go from sitting to standing or when you bend over at the waist. Start on the new medication which is just VALSARTAN 320mg - take this one time a day. we will do a referral to a general surgeon for the cyst on your neck . Hypertension - too well controlled -decrease dose of valsartan from valsartan hctz to plain valsartan, continue with no added salt diet. Pt has been encouraged to exercise daily. The pt has been advised to call the office if there are any acute concerns about change in blood pressure readings at home. Sebaceous cyst - referral to Dr. Rg for removal of the cyst.
--- OUTSIDE RECORDS SUMMARY | 2018-02-10 09:28 | XMS REPORT | CCD ---
Author Author [facility] Organization [facility] Address [address] [place] [address] Phone Care Team Providers Care Security Dispatcher Name Role Phone PP Unavailable CCM Unavailable Summary Purpose Interface Exchange Insurance Providers Payer name Policy type / Coverage type Covered alliance party ID Effective Begin Date Effective End Date Blue Cross Blue Shield [facility] Blue Cross/Blue Shield [id number] 2018 Unknown Family history Grandmother Diagnosis Age [...] semi retired 01/11/[address]: 9735827 Former smoker 01/11/[address]: 628333780 Never drinks alcohol 01/11/2018 Allergies, Adverse Reactions, Alerts Substance Reaction Codes Entered Date Inactivated Date Status NO KNOWN DRUG ALLERGIES Unknown 01/11/2018 No Inactive Date Active Past Medical History Illness Codes Condition Status Onset Date Resolved Date Cutaneous abscess of neck ICD-9: 682.1 ICD-10: L02.11 Active 01/11/2018 Unknown Essential (primary) hypertension ICD-9: 401.1 ICD-10: I10 Active 01/11/2018 Unknown Synovial cyst of popliteal space [Childers], right knee ICD-9: 727.51 ICD-10: M71.21 Active 01/11/2018 Unknown Problems Condition Codes Effective Dates Condition Status Cutaneous abscess of neck ICD-9: 682.1 ICD-10: L02.11 01/11/2018 Active Essential (primary) hypertension ICD-9: 401.1 ICD-10: I10 01/11/2018 Active Synovial cyst of popliteal space [Childers], right knee ICD-9: 727.51 ICD-10: M71.21 01/11/2018 Active Medications Medication Codes Instructions Start Date Stop Date Status Fill Instructions mupirocin 2 % topical ointment RxNorm: 818066 1 Application TOP BID 01/11/2018 01/17/2018 Active doxycycline hyclate 100 mg tablet RxNorm: 5287374 1 Tablet(s) PO BID 01/11/2018 01/20/2018 Active naproxen 500 mg tablet RxNorm: 660340 1 Tablet(s) PO BID 201701/15/2018 Active ceftriaxone 500 mg solution for injection RxNorm: 3721457 Inj 01/11/2018 01/11/2018 Inactive valsartan 320 mg-hydrochlorothiazide 25 mg tablet RxNorm: 572968 1 Tablet(s) PO daily No Start Date Active [employer] Childrens Aspirin 81 mg chewable tablet RxNorm: 933755 1 Tablet(s) PO daily No Start Date Active amlodipine 2.5 mg tablet RxNorm: 865825 1 Tablet(s) PO daily No Start Date Active Advil 200 mg tablet RxNorm: 446372 1 Tablet(s) PO BID No Start Date Active Medication Administered Medication Codes Instructions Start Date Status ceftriaxone 500 mg solution for injection RxNorm: 2465163 01/11/2018 No longer Active Immunizations No Immunization data Assessments Condition Codes Effective Dates Essential (primary) hypertension ICD-10: I10 ICD-9: 401.1 01/11/2018 Cutaneous abscess of neck ICD-10: L02.11 ICD-9: 682.1 01/11/2018 Synovial cyst of popliteal space [Childers], right knee ICD-10 : M71.21 ICD-9: 727.51 01/11/2018 Reason For Visit Reason For Visit Effective Dates Notes skin lesion 01/11/2018 Results No Results data [...] bilaterally 01/11/2018 None Full Exam - General 1994 Respiratory auscultation Diffuse: diminished 01/11/2018 None Full [...] cyst 01/11/2018 None Procedures Procedure Codes Date NAOMI, PER 250 MG CPT-4: J0696 01/11/2018 Vital Signs Date Vital 01/11/2018 Blood Pressure 1: 130/78 Code : 8480-6 BMI: 29.5 Code : 54981-1 Heart Rate 1 : 80 bpm Height: 5'8" SpO2: 97% Weight: 194 lbs Functional Status No Functional Status data History of Present Illness Symptom Name Status Result Effective Date Notes skin lesion Onset and Resolution sudden in [...] data Encounters Encounter Performer Location Codes Date OFFICE VISIT, NEW - LEVEL 4 Diagnosis: Essential (primary) hypertension[ICD10: I10] Diagnosis: Cutaneous abscess of neck[ICD10: L02.11] Diagnosis: Synovial cyst of popliteal space [Childers], right knee[ICD10: M71.21] Jacki George MD, [facility] CPT-4: 92871 01/11/2018 Plan of Care Planned Activity Notes Codes Status Date Visit Plan: Abscess/Cellulitis - The patient was [...] not improving. 01/11/2018 Appointment: Jacki Serrano WPtel: [address] [place], [place] [id number] New Patient 01/11/2018 Patient Education: Patient Medication Summary Completed 01/11/2018 Instructions Comment follow up appointment with Dr. [...]
--- OUTSIDE RECORDS SUMMARY | 2018-02-10 09:28 | XMS REPORT | CCD ---
Author Author [facility] Organization [facility] Address [address] [place] [address] Phone Care Team Providers Care Supervisor [facility] Name Role Phone PP Unavailable CCM Unavailable Summary Purpose Interface Exchange Insurance Providers Payer name Policy type / Coverage type Covered alliance party ID Effective Begin Date Effective End Date Blue Cross Blue Shield [facility] Blue Cross/Blue Shield [id number] 2018 Unknown Family history Grandmother Diagnosis Age [...] semi retired 01/11/[address]: 8393966 Former smoker 01/11/[address]: 379614207 Never drinks alcohol 01/11/2018 Allergies, Adverse Reactions, [...] Instructions mupirocin 2 % topical ointment RxNorm: 578339 1 Application TOP BID 01/11/2018 01/17/2018 Active doxycycline hyclate 100 mg tablet RxNorm: 0934765 1 Tablet(s) PO BID 01/11/2018 01/20/2018 Active naproxen 500 mg tablet RxNorm: 907301 1 Tablet(s) PO BID 201701/15/2018 Active ceftriaxone 500 mg solution for injection RxNorm: 6639162 Inj 01/11/2018 01/11/2018 Inactive valsartan 320 mg-hydrochlorothiazide 25 mg tablet RxNorm: 416797 1 Tablet(s) PO daily No Start Date Active Yair Childrens Aspirin 81 mg chewable tablet RxNorm: 293837 1 Tablet(s) PO daily No Start Date Active amlodipine 2.5 mg tablet RxNorm: 443296 1 Tablet(s) PO daily No Start Date Active Advil 200 mg tablet RxNorm: 752738 1 Tablet(s) PO BID No Start Date Active Medication Administered Medication Codes Instructions Start Date Status ceftriaxone 500 mg solution for injection RxNorm: 5581207 01/11/2018 No longer Active Immunizations No Immunization [...] cyst 01/11/2018 None Procedures Procedure Codes Date THER/PROPH/DIAG INJ SC/IM CPT-4: 66991 01/11/2018 ROCEPHIN, PER 250 MG CPT-4: J0696 01/11/2018 Vital Signs Date Vital 01/11/2018 Blood Pressure 1: 130/78 Code : 8480-6 BMI: 29.5 Code : 63647-5 Heart Rate 1 : 80 bpm Height: [...] [Childers], right knee[ICD10: M71.21] Jacki George MD, [facility] CPT-4: 02669 01/11/2018 Plan of Care Planned Activity Notes [...] not improving. 01/11/2018 Appointment: Jacki Serrano WPtel: [address] [place], [place] [id number] New Patient 01/11/2018 Patient Education: Patient Medication [...]
--- OUTSIDE RECORDS SUMMARY | 2018-02-10 09:28 | XMS REPORT | CCD ---
Author Author Ban George Organization [facility] Address [address] [place] [address] Phone Care Team Providers Care Head Sugar Reprocess Operator Name Role Phone PP Unavailable CCM Unavailable Summary Purpose Interface Exchange Insurance Providers Payer name Policy type / Coverage type Covered republican ID Effective Begin Date Effective End Date Blue Cross Blue Shield [facility] Blue Cross/Blue Shield [id number] 2018 Unknown Family history Grandmother Diagnosis Age [...] semi retired 01/11/[address]: 6881424 Former smoker 01/11/[address]: 947875753 Never drinks alcohol 01/11/2018 Allergies, Adverse Reactions, [...] Instructions mupirocin 2 % topical ointment RxNorm: 016217 1 Application TOP BID 01/11/2018 01/17/2018 Active doxycycline hyclate 100 mg tablet RxNorm: 8100234 1 Tablet(s) PO BID 01/11/2018 01/20/2018 Active naproxen 500 mg tablet RxNorm: 566635 1 Tablet(s) PO BID 201701/15/2018 Active ceftriaxone 500 mg solution for injection RxNorm: 5114873 Inj 01/11/2018 01/11/2018 Inactive valsartan 320 mg-hydrochlorothiazide 25 mg tablet RxNorm: 093613 1 Tablet(s) PO daily No Start Date Active Yair Childrens Aspirin 81 mg chewable tablet RxNorm: 314791 1 Tablet(s) PO daily No Start Date Active amlodipine 2.5 mg tablet RxNorm: 210475 1 Tablet(s) PO daily No Start Date Active Advil 200 mg tablet RxNorm: 140653 1 Tablet(s) PO BID No Start Date Active Medication Administered Medication Codes Instructions Start Date Status ceftriaxone 500 mg solution for injection RxNorm: 1192797 01/11/2018 No longer Active Immunizations No Immunization [...] Procedure Codes Date THER/PROPH/DIAG INJ SC/IM CPT-4: 22737 01/11/2018 ROCEPHIN, PER 250 MG CPT-4: J0696 01/11/2018 Vital Signs Date Vital 01/11/2018 Blood Pressure 1: 130/78 Code : 8480-6 BMI: 29.5 Code : 46538-6 Heart Rate 1 : 80 bpm Height: [...] [Childers], right knee[ICD10: M71.21] Jacki George MD, [facility] CPT-4: 10101 01/11/2018 Plan of Care Planned Activity Notes [...] not improving. 01/11/2018 Appointment: Jacki Serrano WPtel: [address] [place], [place] [id number] New Patient 01/11/2018 Patient Education: Patient Medication [...]
--- OUTSIDE RECORDS SUMMARY | 2018-02-10 09:29 | XMS REPORT | CCD ---
Author Author Jacki Serrano Organization [facility], [facility] Address [address] [place] [address] Phone Care Team Providers Care Phlebotomy Lab Assistant Name Role Phone PP Unavailable CCM Unavailable Summary Purpose Interface Exchange Insurance Providers Payer name Policy type / Coverage type Covered republican ID Effective Begin Date Effective End Date Blue Cross Blue Shield [facility] Blue Cross/Blue Shield [id number] 2018 Unknown Family history Grandmother Diagnosis Age [...] semi retired 01/11/[address]: 6407177 Former smoker 01/11/[address]: 290560786 Never drinks alcohol 01/11/2018 Allergies, Adverse Reactions, [...] Instructions mupirocin 2 % topical ointment RxNorm: 734489 1 Application TOP BID 01/11/2018 01/17/2018 Active doxycycline hyclate 100 mg tablet RxNorm: 9375230 1 Tablet(s) PO BID 01/11/2018 01/20/2018 Active naproxen 500 mg tablet RxNorm: 341337 1 Tablet(s) PO BID 201701/15/2018 Active ceftriaxone 500 mg solution for injection RxNorm: 2106534 Inj 01/11/2018 01/11/2018 Inactive valsartan 320 mg-hydrochlorothiazide 25 mg tablet RxNorm: 131101 1 Tablet(s) PO daily No Start Date Active Yair Childrens Aspirin 81 mg chewable tablet RxNorm: 025301 1 Tablet(s) PO daily No Start Date Active amlodipine 2.5 mg tablet RxNorm: 016515 1 Tablet(s) PO daily No Start Date Active Advil 200 mg tablet RxNorm: 194491 1 Tablet(s) PO BID No Start Date Active Medication Administered Medication Codes Instructions Start Date Status ceftriaxone 500 mg solution for injection RxNorm: 8889767 01/11/2018 No longer Active Immunizations No Immunization [...] Procedure Codes Date THER/PROPH/DIAG INJ SC/IM CPT-4: 00422 01/11/2018 ROCEPHIN, PER 250 MG CPT-4: J0696 01/11/2018 Vital Signs Date Vital 01/11/2018 Blood Pressure 1: 130/78 Code : 8480-6 BMI: 29.5 Code : 77495-9 Heart Rate 1 : 80 bpm Height: [...] [Childers], right knee[ICD10: M71.21] Jacki George MD, [facility] CPT-4: 30421 01/11/2018 Plan of Care Planned Activity Notes [...] not improving. 01/11/2018 Appointment: Jacki Serrano WPtel: [address] [place], [place] [id number] New Patient 01/11/2018 Patient Education: Patient Medication [...]
--- OUTSIDE RECORDS SUMMARY | 2018-02-10 09:29 | XMS REPORT | Continuity of Care Document ---
Author Author [facility] Address Unknown Phone Unavailable Allergies Active Description Code Type Severity Reaction Onset Reported/Identified Relationship to Patient Clinical Status Yes No Known Drug Allergies [id number] N/A N/A Yes No Known Drug Allergies [id number] Drug Allergy Unknown N/A 08/06/2016 Medications There is no data. Problems Date Dx Coded Attending Type Code Diagnosis Diagnosed By 08/06/2016 NATHAN MERCEDES MD, Ot S43.432A SUPERIOR GLENOID LABRUM LESION OF LEFT S 08/06/2016 NATHAN MERCEDES MD Ot Z01.818 ENCOUNTER FOR OTHER PREPROCEDURAL EXAMIN 08/06/2016 NATHAN MERCEDES MD Ot Z11.2 ENCOUNTER FOR SCREENING FOR OTHER BACTER 08/07/2016 NATHAN MERCEDES MD, Ot S43.432A SUPERIOR GLENOID LABRUM LESION OF LEFT S 08/07/2016 NATHAN MERCEDES MD Ot Z01.818 ENCOUNTER FOR OTHER PREPROCEDURAL EXAMIN 08/07/2016 NATHAN MERCEDES MD Ot Z11.2 ENCOUNTER FOR SCREENING FOR OTHER BACTER 08/13/2016 NATHAN MERCEDES MD Ot I10 ESSENTIAL (PRIMARY) HYPERTENSION 08/13/2016 NATHAN MERCEDES MD Ot I71.9 AORTIC ANEURYSM OF UNSPECIFIED SITE, WIT 08/13/2016 NATHAN MERCEDES MD Ot K21.9 GASTRO-ESOPHAGEAL REFLUX DISEASE WITHOUT 08/13/2016 NATHAN MERCEDES MD Ot M25.812 OTHER SPECIFIED JOINT DISORDERS, LEFT SH 08/13/2016 NATHAN MERCEDES MD, Ot S43.432A SUPERIOR GLENOID LABRUM LESION OF LEFT S 08/13/2016 NATHAN MERCEDES MD Ot Z79.899 OTHER SKILLED NURSING (CURRENT) DRUG THERAPY 08/14/2016 NATHAN MERCEDES MD Ot I10 ESSENTIAL (PRIMARY) HYPERTENSION 08/14/2016 NATHAN MERCEDES MD Ot I71.9 AORTIC ANEURYSM OF UNSPECIFIED SITE, WIT 08/14/2016 NATHAN MERCEDES MD Ot K21.9 GASTRO-ESOPHAGEAL REFLUX DISEASE WITHOUT 08/14/2016 NATHAN MERCEDES MD Ot M25.812 OTHER SPECIFIED JOINT DISORDERS, LEFT SH 08/14/2016 NATHAN MERCEDES MD Ot S43.432A SUPERIOR GLENOID LABRUM LESION OF LEFT S 08/14/2016 NATHAN MERCEDES MD Ot Z79.899 OTHER DIRECTOR OF RETENTION (CURRENT) DRUG THERAPY 08/15/2016 NATHAN MERCEDES MD P Ot I10 ESSENTIAL (PRIMARY) HYPERTENSION 08/15/2016 NATHAN MERCEDES MD Ot I71.9 AORTIC ANEURYSM OF UNSPECIFIED SITE, WIT 08/15/2016 NATHAN MERCEDES MD Ot K21.9 GASTRO-ESOPHAGEAL REFLUX DISEASE WITHOUT 08/15/2016 NATHAN MERCEDES MD Ot M25.812 OTHER SPECIFIED JOINT DISORDERS, LEFT SH 08/15/2016 NATHAN MERCEDES MD Ot S43.432A SUPERIOR GLENOID LABRUM LESION OF LEFT S 08/15/2016 NATHAN MERCEDES MD Ot Z79.899 OTHER DIRECTOR OF RETENTION (CURRENT) DRUG THERAPY 08/19/2016 NATHAN MERCEDES MD P Ot I10 ESSENTIAL (PRIMARY) HYPERTENSION 08/19/2016 NATHAN MERCEDES MD Ot I71.9 AORTIC ANEURYSM OF UNSPECIFIED SITE, WIT 08/19/2016 NATHAN MERCEDES MD Ot K21.9 GASTRO-ESOPHAGEAL REFLUX DISEASE WITHOUT 08/19/2016 NATHAN MERCEDES MD Ot M25.812 OTHER SPECIFIED JOINT DISORDERS, LEFT SH 08/19/2016 NATHAN MERCEDES MD Ot S43.432A SUPERIOR GLENOID LABRUM LESION OF LEFT S 08/19/2016 NATHAN MERCEDES MD Ot Z79.899 OTHER DIRECTOR OF RETENTION (CURRENT) DRUG THERAPY 09/03/2016 NATHAN MERCEDES MD P Ot I10 ESSENTIAL (PRIMARY) HYPERTENSION 09/03/2016 NATHAN MERCEDES MD Ot I71.9 AORTIC ANEURYSM OF UNSPECIFIED SITE, WIT 09/03/2016 NATHAN MERCEDES MD Ot K21.9 GASTRO-ESOPHAGEAL REFLUX DISEASE WITHOUT 09/03/2016 NATHAN MERCEDES MD Ot M25.812 OTHER SPECIFIED JOINT DISORDERS, LEFT SH 09/03/2016 NATHAN MERCEDES MD Ot S43.432A SUPERIOR GLENOID LABRUM LESION OF LEFT S 09/03/2016 DAREN CAMPBELL, NATHAN P Ot Z79.899 OTHER DIRECTOR OF RETENTION (CURRENT) DRUG THERAPY 11/19/2016 S S79406 Pain in left shoulder 11/19/2016 P Y39320 Incomplete rotator cuff tear or rupture of left shoulder, not specified as traumatic 06/10/2017 ORENDER DO, DYLAN S Ot I27.20 PULMONARY HYPERTENSION, UNSPECIFIED 06/10/2017 ORENDER DO, DYLAN S Ot I34.0 NONRHEUMATIC MITRAL (VALVE) INSUFFICIENC 06/10/2017 ORENDER DO, DYLAN S Ot R07.9 CHEST PAIN, UNSPECIFIED 06/24/2017 ORENDER DO, DYLAN S Ot I27.20 PULMONARY HYPERTENSION, UNSPECIFIED 06/24/2017 ORENDER DO, DYLAN S Ot I34.0 NONRHEUMATIC MITRAL (VALVE) INSUFFICIENC 06/24/2017 ORENDER DO, DYLAN S Ot R07.9 CHEST PAIN, UNSPECIFIED 12/18/2017 ORENDER DO, DYLAN S Ot I27.20 PULMONARY HYPERTENSION, UNSPECIFIED 12/18/2017 ORENDER DO, DYLAN S Ot I34.0 NONRHEUMATIC MITRAL (VALVE) INSUFFICIENC 12/18/2017 ORENDER DO, DYLAN S Ot R07.9 CHEST PAIN, UNSPECIFIED 12/18/2017 Ot R06.00 DYSPNEA, UNSPECIFIED 12/18/2017 Ot R07.9 CHEST PAIN, UNSPECIFIED 02/08/2018 VICKY CAMPBELL, ALLISON Han Ot Z01.818 ENCOUNTER FOR OTHER PREPROCEDURAL EXAMIN Procedures There is no data. Results Test Result Range Methicillin resistant Staphylococcus aureus (MRSA) screening culture - 13:48 Methicillin resistant Staphylococcus aureus (MRSA) screening culture NEG NRG Encounters ACCT No. Visit Date/Time Discharge Status Pt. Type Provider Facility Loc./Unit Complaint [id number] 04/01/2017 10:36:50 04/01/2017 23:59:59 CLS Outpatient Prudencio, V S [id number] 09/25/2016 09:06:32 09/25/2016 23:59:59 CLS Outpatient Prudencio, V S [id number] 04/15/2016 09:41:25 04/15/2016 23:59:59 CLS Outpatient Prudencio, V S [id number] 12/24/2015 11:56:17 12/24/2015 23:59:59 CLS Outpatient Prudencio, V S [id number] 12/19/2015 17:08:40 12/19/2015 23:59:59 CLS Outpatient Prudencio, V S [id number] 12/03/2015 09:43:50 12/03/2015 23:59:59 CLS Outpatient Nathan Kramer [id number] 11/28/2015 12:05:57 11/28/2015 23:59:59 CLS Outpatient Prudencio, V S [id number] 11/12/2015 10:30:09 11/12/2015 23:59:59 CLS Outpatient Lincoln, Nathan [id number] 11/07/2015 11:45:08 11/07/2015 23:59:59 CLS Outpatient Prudencio, V S [id number] 10/08/2015 11:01:47 10/08/2015 23:59:59 CLS Outpatient Nia Nathan [id number] 05/18/2013 15:35:51 05/18/2013 23:59:59 CLS Outpatient RaynaAdeola [id number] 05/04/2013 09:42:53 05/04/2013 23:59:[address] [id number] 02/05/2018 06:12:00 02/05/2018 15:03:00 DIS Outpatient ALLISON PERRY MD [facility] PREOP SEBACEOUS CYST [id number] 06/09/2017 10:43:00 06/09/2017 23:59:59 CLS Outpatient DYLAN SEN DO [facility] CARD CHEST PAIN [id number] 08/13/2016 06:00:00 08/13/2016 11:00:00 DIS Outpatient NATHAN MERCEDES MD [facility] SUPERIOR GLENOID LABRUM LESION LEFT SHOULDER [id number] 08/06/2016 13:31:00 08/06/2016 13:55:00 DIS Outpatient NATHAN MERCEDES MD [facility] PREOP SUPERIOR GLENOID LABRUM LESION LEFT SHOULDER [id number] 02/10/2018 09:17:00 ACT Outpatient ALLISON PERRY MD [facility] SEBACEOUS CYST [id number] 10/27/2017 10:09:00 Document Registration [id number] 01/07/2018 15:04:37 01/07/2018 23:59:59 CLS Outpatient [id number] 01/07/2018 12:59:52 Document Registration [id number] 03/18/2017 11:30:18 Document Registration [id number] 08/15/2016 08:18:00 Document Registration [id number] 11/21/2017 17:19:53 11/21/2017 23:59:59 CLS Outpatient
[2018-02-10] MEDS ORDERED: DEXAMETHASONE 10 MG/ML (DECADRON) 1 ML VIAL ONE (09:32)
[2018-02-10] MEDS ORDERED: SEVOFLURANE (ULTANE) 15 ML INHAL SOLN ONE ×3 (09:32→10:13)
[2018-02-10] MEDS ORDERED: LACTATED RINGERS 1,000 ML IV PRN (09:38)
[2018-02-10] MEDS ORDERED: ceFAZolin 2 GM IV Premixed 50 ML IV ONE (09:45)
[2018-02-10] MEDS ORDERED: metroNIDAZOLE 500MG/100ML IVPB 100 ML IV ONE (09:45)
[2018-02-10 09:55] VITALS: BP_SYST 142; BP_SYST 146; BP_DIAS 96
[2018-02-10] MEDS ORDERED: TRAM50TA2 PO (09:59)
--- NOTE | 2018-02-10 10:00 | Discharge Inst-Simple/Standard ---
Discharge Inst-Standard Discharge Medications New, Converted or Re-Newed RX: RX on Chart Patient Instructions/Follow Up Plan of Care/Instructions/FU: Dressing off in 48 hours. F/U with my nurse in 10 days Activity as Tolerated: Yes Discharge Diet: No Restrictions ALLISON PERRY MD Feb 10, 2018 10:00
--- NOTE | 2018-02-10 10:20 | Operative Report ---
Operative Report Date of Procedure/Surgery Feb 10, 2018 Surgeon (s) ALLISON PERRY MD Investigative Agent (s): N/A Post-Operative Diagnosis same Procedure Performed excision Description of Procedure Anesthesia Type: General Estimated blood loss (mL): minimal Specimen(s) collected/removed sebaceous cyst Description of the Procedure Indication for the procedure: This gentleman presented with a 2 cm sebaceous cyst over the left side of his neck, with evidence of infection. Following a brief course of oral antibiotics, he came in for formal excision under general anesthetic. Informed consent was obtained after reviewing the operative details and highlighting possibility of postoperative wound infection. Description of the procedure: He was placed supine on the operative table and general anesthesia induced. A gram of Ancef was administered intravenously as prophylaxis against wound infection. Left side of his neck was prepared and draped in the usual sterile manner. Preemptive analgesia was established using 0.5 percent Marcaine with epinephrine. An elliptical incision about 4 cm in length by 3 cm in width was made and the cyst excised intact. Hemostasis was achieved using cautery and the incision closed in 2 layers, with 3-0 PDS for the subcutaneous tissue and 4-0 nylon for skin, in an interrupted fashion. A nonadherent dressing was applied. He tolerated the procedure well, was extubated in the operating room and taken to the recovery room in a stable condition. Findings of the Procedure see op report Allergies and Home Medications Allergies Coded Allergies: No Known Drug Allergies (Unverified , 08/06/16) Home Medications Amlodipine Besylate 2.5 Mg Tablet, 2.5 MG PO DAILY, (Reported) Aspirin 81 Mg Tablet.dr, 81 MG PO DAILY, (Reported) Tramadol HCl 50 Mg Tablet, 50 MG PO Q12H PRN for PAIN-MILD TO MODERATE Prescribed by: ALLISON PERRY on 02/10/18 0959 Valsartan 320 Mg Tablet, 320 MG PO DAILY, (Reported) Patient Home Medication List Home Medication List Reviewed: Yes ALLISON PERRY MD Feb 10, 2018 10:20
--- NOTE | 2018-02-10 10:43 | Anesthesia-General Post-Op ---
General Patient Condition Mental Status/LOC: Same as Preop Cardiovascular: Satisfactory Nausea/Vomiting: Absent Respiratory: Satisfactory Pain: Controlled Complications: Absent Post Op Complications Complications None Follow Up Care/Instructions Patient Instructions None needed. Anesthesia/Patient Condition Patient Condition Patient is doing well, no complaints, stable vital signs, no apparent adverse anesthesia problems. No complications reported per nursing. SHARON RANDALL CRNA Feb 10, 2018 10:43
[2018-02-10 11:15] VITALS: BP 103/70
[2018-02-10 11:45] VITALS: BP 105/75
[2018-02-10 12:15] VITALS: BP 99/69
[2018-02-10 12:30] VITALS: BP 99/69
== END 2018-02-10 12:30 | disposition home or self-care (01) ==
LOC: SDC 09:17
PROVIDERS: ATTEND Surgery
DX: L72.3 Sebaceous cyst (principal); I10 Essential (primary) hypertension; Z79.82 Long term (current) use of aspirin; Z79.899 Other long term (current) drug therapy; Z87.891 Personal history of nicotine dependence
CPT/HCPCS: 87081; 88304

== ENCOUNTER 2018-03-26 09:18 | Emergency (ER) | payer BC | END 2018-03-26 11:00 | disposition home or self-care (01) | LOC: ER 09:18 ==

== ENCOUNTER → 2018-05-05 | Outpatient (CLI) | payer BC ==
[~2018-05-05] MED LIST changes: +AMLO10TA7 PO; -AMLO2.5T3 PO; +AMLO2.5T4 PO; +CATHETER FLUSH 10 ML SYR IV PRN; +DICL75TA2; +LOSA100T57; +REGADENOSON 0.4 MG/5 ML SYR (LEXISCAN) IV ONE; +TRAM50TA2 PO
[2018-05-05 12:53] VITALS: BP 120/81
[2018-05-05 13:09] VITALS: BP 141/85
[2018-05-05 13:10] VITALS: BP 133/84
[2018-05-05 13:11] VITALS: BP 133/84
--- NOTE | 2018-05-05 15:18 | STRESS TEST ---
DATE OF SERVICE: 05/05/2018 LEXISCAN MYOVIEW STRESS TEST REPORT REFERRING PHYSICIAN: Dr. George. Baseline heart rate is 56. Baseline blood pressure 120/75. Baseline EKG is sinus rhythm with no ischemic changes. In summary, the patient was injected with 10.63 mCi of technetium-99 Myoview. He was scheduled for exercise stress test, was unable to exercise. Test was terminated and converted to Lexiscan Myoview stress test. The patient received 0.4 mg of Lexiscan, followed by 32.5 mCi of technetium-99 Myoview. Throughout the test, there were no EKG changes. The resting and stress images were reviewed and compared in the short axis, horizontal long axis, and vertical long axis views. Review of the images showed diaphragmatic attenuation affecting the quality of the images. There is a decrease uptake involving the inferior wall and inferoapical segment with mild reversibility. SSS is 12. SDS 8. TID value 1.01. On the gated images, the left ventricle appeared to be in normal size with normal contractility. Calculated ejection fraction 57%. CONCLUSION: 1. The patient tolerated Lexiscan well. 2. Diaphragmatic attenuation affecting the quality of the images with questionable ischemia involving the inferior wall, inferolateral wall and inferoseptum. 3. Normal left ventricular size with normal contractility. Calculated ejection fraction 57%. Job ID: [id number] DocumentID: [id number] Dictated Date: 05/05/2018 14:52:54 Environmental Programs Specialist Date: 05/05/2018 15:16:50 Dictated By: EDWIN SAUL MD
== END ==
LOC: CARD 11:29
PROVIDERS: ATTEND Internal Medicine Cardiovascular Disease
DX: R07.89 Other chest pain (principal); I10 Essential (primary) hypertension; E78.2 Mixed hyperlipidemia; L72.3 Sebaceous cyst
CPT/HCPCS: 78452; 93017

== ENCOUNTER 2018-05-12 11:01 | Day surgery (SDC) | payer BC ==
[2018-05-12] VITALS (11 sets, daily range): BP systolic 91–128; BP diastolic 67–87
[~2018-05-12] VITALS: Ht 172.7 cm; Wt 86.2 kg
[~2018-05-12 11:01] MED LIST changes: -CATHETER FLUSH 10 ML SYR IV PRN; +HEParin 1000 UNIT/ML (10ML VIAL) FOR BOLUS ONE; +LIDOCAINE 1% INJ 20 ML 20 ML VIAL ONE; +NS IV 1000 ML 1,000 ML ONE; +NS IV 1000 ML 2,000 ML ONE; -REGADENOSON 0.4 MG/5 ML SYR (LEXISCAN) IV ONE
[2018-05-12] MEDS ORDERED: NS IV 1000 ML 1,000 ML IV SCH ×2 (11:06→13:07)
--- OUTSIDE RECORDS SUMMARY | 2018-05-12 11:10 | XMS REPORT | CCD ---
Author Author Ban George Organization [facility] Address [address] [place] [address] Phone Care Team Providers Care Soldering Machine Tender Name Role Phone PP Unavailable CCM Unavailable Summary Purpose Interface Exchange Insurance Providers Payer name Policy type / Coverage type Covered libertarian ID Effective Begin Date Effective End Date Blue Cross Blue [facility] Blue Cross/Blue Shield [id number] 2018 Unknown Family history Grandmother Diagnosis Age [...] semi retired 01/11/[address]: 8266669 Former smoker 01/11/[address]: 202591362 Never drinks alcohol 01/11/2018 Allergies, Adverse Reactions, Alerts Substance Reaction Codes Entered Date Inactivated Date Status NO KNOWN DRUG ALLERGIES Unknown 01/11/2018 No Inactive Date Active Past Medical History Illness Codes Condition Status Onset Date Resolved Date Chest pain, unspecified ICD-9: 786.50 ICD-10: R07.9 Active 03/26/2018 Unknown Essential (primary) hypertension ICD-9: 401.1 ICD-10: I10 Active 01/11/2018 Unknown Epidermal cyst ICD-9: 706.2 ICD-10: L72.0 Active 01/28/2018 Unknown Cutaneous abscess of neck ICD-9: 682.1 ICD-10: L02.11 Active 01/11/2018 Unknown Synovial cyst of popliteal space [Childers], right knee ICD-9: 727.51 ICD-10: M71.21 Active 01/11/2018 Unknown Problems Condition Codes Effective Dates Condition Status Chest pain, unspecified ICD-9: 786.50 ICD-10: R07.9 03/26/2018 Active Essential (primary) hypertension ICD-9: 401.1 ICD-10: I10 01/11/2018 Active Epidermal cyst ICD-9: 706.2 ICD-10: L72.0 01/28/2018 Active Cutaneous abscess of neck ICD-9: 682.1 ICD-10: L02.11 01/11/2018 Active Synovial cyst of popliteal space [Childers], right knee ICD-9: 727.51 ICD-10: M71.21 01/11/2018 Active Medications Medication Codes Instructions Start Date Stop Date Status Fill Instructions losartan 100 mg tablet RxNorm: 273078 1 Tablet(s) PO daily 02/26/2019 Active d/c valsartan amlodipine 2.5 mg tablet RxNorm: 828387 1 Tablet(s) PO daily 02/26/2019 Active losartan 100 mg tablet RxNorm: 707066 1 Tablet(s) PO daily 09/201703/03/2018 Inactive d/c valsartan losartan 100 mg tablet RxNorm: 947879 1 Tablet(s) PO daily 09/201702/25/2018 Inactive d/c valsartan valsartan 320 mg tablet RxNorm: 574272 1 Tablet(s) PO daily 10/201702/25/2018 Inactive this repalces his valsartan/hctz mupirocin 2 % topical ointment RxNorm: 724334 1 Application TOP BID 01/11/2018 01/17/2018 Inactive doxycycline hyclate 100 mg tablet RxNorm: 4187211 1 Tablet(s) PO BID 01/11/2018 01/20/2018 Inactive naproxen 500 mg tablet RxNorm: 624654 1 Tablet(s) PO BID 201701/15/2018 Inactive ceftriaxone 500 mg solution for injection RxNorm: 8468578 Inj 01/11/2018 01/11/2018 Inactive Yair Childrens Aspirin 81 mg chewable tablet RxNorm: 851096 1 Tablet(s) PO daily No Start Date Active Advil 200 mg tablet RxNorm: 018286 1 Tablet(s) PO BID No Start Date Active valsartan 320 mg-hydrochlorothiazide 25 mg tablet RxNorm: 285849 1 Tablet(s) PO daily No Start Date 01/27/2018 Inactive amlodipine 2.5 mg tablet RxNorm: 027431 1 Tablet(s) PO daily No Start Date 03/03/2018 Inactive Medication Administered Medication Codes Instructions Start Date Status ceftriaxone 500 mg solution for injection RxNorm: 5837543 01/11/2018 No longer Active Immunizations No Immunization data Assessments Condition Codes Effective Dates Chest pain, unspecified ICD-10: R07.9 ICD-9: 786.50 03/26/2018 Essential (primary) hypertension ICD-10: I10 ICD-9: 401.1 03/04/2018 Epidermal cyst ICD-10: L72.0 ICD-9: 706.2 01/28/2018 Cutaneous abscess of neck ICD-10: L02.11 ICD-9: 682.1 01/11/2018 Synovial cyst of popliteal space [Childers], right knee ICD-10 : M71.21 ICD-9: 727.51 01/11/2018 Reason For Visit Reason For Visit Effective Dates Notes nausea 03/26/2018 blood pressure followup 03/04/2018 blood pressure followup 01/28/2018 skin lesion 01/11/2018 Results No Results data Review of Systems System Result Effective Dates Constitutional No recent illness 2018 Constitutional No chills 03/26/2018 Constitutional No diaphoresis 03/26/2018 Constitutional fatigue 03/26/2018 Constitutional No fever 03/26/2018 Eyes No eye erythema 03/26/2018 Ears/Nose/Throat/Neck No nasal discharge 03/26/2018 Cardiovascular chest pain/pressure 2018 Cardiovascular fatigue 03/26/2018 Cardiovascular exercise intolerance 03/26 Cardiovascular near-syncope/dizziness 06/2018 Cardiovascular No palpitations 2018 Respiratory No cough 03/26/2018 Respiratory No chest congestion 2018 Respiratory dyspnea on exertion 2018 Respiratory No dyspnea 03/26/2018 Gastrointestinal No abdominal pain 2018 Gastrointestinal No constipation 2018 Gastrointestinal No diarrhea 03/26/2018 Gastrointestinal nausea 03/26/2018 Gastrointestinal No vomiting 03/26/2018 Musculoskeletal shoulder pain 03/26/2018 Neurologic No alteration of consciousness 03/26/2018 Neurologic No mental status change 2018 Constitutional No recent illness 2017 Constitutional No chills 03/04/2018 Constitutional No diaphoresis 03/04/2018 Constitutional No fever 03/04/2018 Eyes No blindness 03/04/2018 Ears/Nose/Throat/Neck nasal allergies Ears/Nose/Throat/Neck No nasal discharge 03/04/2018 Cardiovascular No chest pain/pressure Cardiovascular No dyspnea 03/04/2018 Cardiovascular No edema 03/04/2018 Cardiovascular No palpitations 2017 Respiratory No chest congestion 2017 Respiratory No cough 03/04/2018 Gastrointestinal No abdominal pain 2017 Gastrointestinal No constipation 2017 Gastrointestinal No diarrhea 03/04/2018 Gastrointestinal No gastroesophageal reflux 03/04/2018 Gastrointestinal No hematochezia 2017 Gastrointestinal No melena 03/04/2018 Gastrointestinal No odynophagia 2017 Gastrointestinal No vomiting 03/04/2018 Genitourinary/Nephrology No dysuria 03/04 Neurologic No alteration of consciousness 03/04/2018 Neurologic No mental status change 2017 Psychiatric No anxiety 03/04/2018 Dermatologic scar 03/04/2018 Constitutional No recent illness 2017 Constitutional No [...] Result Effective Dates Notes Full Exam - Cardiology Eyes conjunctiva/ eyelids Overall: conjunctiva clear 03/26/2018 None Full Exam - Cardiology Eyes conjunctiva/ eyelids Overall: cornea clear 03/26/2018 None Full Exam - Cardiology Eyes conjunctiva/ eyelids Overall: eyelids normal 03/26/2018 None Full Exam - Cardiology Ears/Nose/Throat oral mucosa Overall: oral mucosa clear 03/26/2018 None Full Exam - Cardiology Respiratory auscultation Overall: breath sounds clear bilaterally 03/26/2018 None Full Exam - Cardiology Respiratory respiratory effort/rhythm Overall: normal rate 03/26/2018 None Full Exam - Cardiology Respiratory respiratory effort/rhythm Overall: no retractions 03/26/2018 None Full Exam - Cardiology Cardiovascular auscultation of heart Overall: regular rate 03/26/2018 None Full Exam - Cardiology Cardiovascular auscultation of heart Overall: normal heart sounds 03/26/2018 None Full Exam - Cardiology Musculoskeletal gait and station Overall: normal station 03/26/2018 None Full Exam - Cardiology Musculoskeletal gait and station Overall: normal gait 03/26/2018 None Full Exam - Cardiology Neurologic cranial nerves CN 1: cranial nerves 2-12 grossly intact 03/26/2018 None Full Exam - Cardiology Psychiatric orientation/consciousness Overall: oriented to person, place and time 03/26/2018 None Full Exam - Cardiology Psychiatric mood and affect Overall: normal mood and affect 03/26/2018 None Full Exam - Cardiology Constitutional general appearance Overall: well nourished 03/26/2018 None Full Exam - Cardiology Constitutional general appearance Overall: well developed 03/26/2018 None Full Exam - Cardiology Constitutional general appearance Overall: in no acute distress 03/26/2018 None Full Exam - General 1994 Constitutional general appearance Overall: well developed 03/04/2018 None Full Exam - General 1994 Constitutional general appearance Overall: in no acute distress 03/04/2018 None Full Exam - General 1994 Constitutional general appearance Overall: well nourished 03/04/2018 None Full Exam - General 1994 Eyes conjunctiva /eyelids Overall: conjunctiva clear 03/04/2018 None Full Exam - General 1994 Eyes conjunctiva /eyelids Overall: cornea clear 03/04/2018 None Full Exam - General 1994 Eyes conjunctiva /eyelids Overall: eyelids normal 03/04/2018 None Full Exam - General 1994 Eyes pupils and irises Overall: pupils equal, round, reactive to light and accomodation 03/04/2018 None Full Exam - General 1994 Ears/Nose/Throat otoscopic exam Overall: tympanic membranes clear 03/04/2018 None Full Exam - General 1994 Ears/Nose/Throat otoscopic exam External auditory canal: partial cerumen occlusion 03/04/2018 None Full Exam - General 1994 Ears/Nose/Throat lips/teeth/gingiva Overall: benign lips 03/04/2018 None Full Exam - General 1994 Ears/Nose/Throat oral cavity/pharynx/larynx Overall: oral mucosa clear 03/04/2018 None Full Exam - General 1994 Respiratory auscultation Overall: breath sounds clear bilaterally 03/04/2018 None Full Exam - General 1994 Respiratory auscultation Diffuse: diminished 03/04/2018 None Full Exam - General 1994 Respiratory respiratory effort/rhythm Overall: no retractions 03/04/2018 None Full Exam - General 1994 Respiratory respiratory effort/rhythm Overall: normal rate 03/04/2018 None Full Exam - General 1994 Cardiovascular auscultation of heart Overall: regular rate 03/04/2018 None Full Exam - General 1994 Cardiovascular auscultation of heart Overall: normal heart sounds 03/04/2018 None Full Exam - General 1994 Abdomen abdominal exam Overall: no tenderness 03/04/2018 None Full Exam - General 1994 Abdomen abdominal exam Overall: normal bowel sounds 03/04/2018 None Full Exam - General 1994 Musculoskeletal lower extremity Palpation - knee: childers' s cyst 03/04/2018 None Full Exam - General 1994 Musculoskeletal gait and station Overall: normal gait 03/04/2018 None Full Exam - General 1994 Musculoskeletal gait and station Overall: normal station 03/04/2018 None Full Exam - General 1994 Musculoskeletal head and neck Overall: head atraumatic 03/04/2018 None Full Exam - General 1994 Neurologic cranial nerves Overall: crainial nerves 2 - 12 grossly intact 03/04/2018 None Full Exam - General 1994 Psychiatric orientation/consciousness Overall: oriented to person, place and time 03/04/2018 None Full Exam - General 1994 Psychiatric mood and affect Overall: normal mood and affect 03/04/2018 None Full Exam - General 1994 Integument inspection of skin Location: neck 03/04/2018 healing skin lesion - suture not completely removed at lowest part of surgical site. Full Exam - General 1994 Constitutional general [...] cyst 01/11/2018 None Procedures Procedure Codes Date TONY SALGADO 250 MG CPT-4: J0696 01/11/2018 Vital Signs Date Vital 03/26/2018 Blood Pressure 1: 168/92 Code : 8480-6 Blood Pressure 1: 154/90 Code: 8480-6 BMI: 29.8 Code: 13914-0 Heart Rate 1: 63 bpm Height: 5'8" SpO2: 96% Weight: 196 lbs 03/04/2018 Blood Pressure 1: 144/76 Code : 8480-6 BMI: 28.9 Code : 55556-8 Heart Rate 1 : 67 bpm Height: 5'8" SpO2: 98% Weight: 190 lbs 01/28/2018 Blood Pressure 1: 138/90 Code : 8480-6 BMI: 29.2 Code : 67680-9 Heart Rate 1 : 84 bpm Height: 5'8" SpO2: 97% Weight: 192 lbs 01/11/2018 Blood Pressure 1: 130/78 Code : 8480-6 BMI: 29.5 Code : 08502-8 Heart Rate 1 : 80 bpm Height: 5'8" SpO2: 97% Weight: 194 lbs Functional Status No Functional Status data History of Present Illness Symptom Name Status Result Effective Date Notes Onset of Symptom 1 days ago 03/26/2018 None Location diffusely None Quality aching 2018 None Onset and Resolution sudden in onset 03/26/2018 None Onset of Symptom 24 hours ago 03/26/2018 None Location diffusely None Radiating the left shoulder 03/26/2018 None Radiating the left arm 03/26/2018 None Quality aching 2018 None Onset and Resolution sudden in onset 03/26/2018 None Onset of Symptom 12 hours ago 03/26/2018 None Quality chronic 03/26 None Onset and Resolution ongoing 03/26/2018 None Quality intermittent 03/04/2018 None Onset and Resolution ongoing 03/04/2018 None Blood Pressure Values pt checking blood pressure - see scanned document 03/04/2018 None Triggers stress 03/04 None Alleviating Factors medication 03/04/2018 None Exacerbating Factors stress 03/04/2018 None Pertinent Findings dizziness 03/04/2018 "little lightheaded" at times Pertinent Findings dyspnea 03/04/2018 "a little" blood pressure followup Quality intermittent 01/28/2018 None [...] data Encounters Encounter Performer Location Codes Date EST. PATIENT, LEVEL III Diagnosis: Chest pain, unspecified[ICD10: R07.9] Jacki George MD, [facility] CPT-4: 07231 03/26/2018 ([id number]) [id number] EST. PATIENT, LEVEL III Diagnosis: Essential (primary) hypertension[ICD10: I10] [facility] CPT-4: 48380 03/04/2018 [id number] EST. PATIENT, LEVEL III Diagnosis: Essential (primary) hypertension[ICD10: I10] Diagnosis: Epidermal cyst[ICD10: L72.0] Ban George MD, [facility] CPT- 4: 61756 01/28/2018 OFFICE VISIT, NEW - LEVEL 4 Diagnosis: Essential (primary) hypertension[ICD10: I10] Diagnosis: Cutaneous abscess of neck[ICD10: L02.11] Diagnosis: Synovial cyst of popliteal space [Childers], right knee[ICD10: M71.21] Jacki George MD, [facility] CPT-4: 48078 01/11/2018 Plan of Care Planned Activity Notes Codes Status Date Visit Plan: Chest pain - to the left chest, radiating to left arm and back with nausea and some dyspnea, pt does have a cardiac history - pt is to go to the ER for evaluation. 03/26/2018 Patient Education: Patient Medication Summary Completed 03/26/2018 Visit Plan: Hypertension - well controlled - continue with current medications, continue with no added salt diet. Pt has been encouraged to exercise daily. The pt has been advised to call the office if there are any acute concerns about change in blood pressure readings at home. 03/04/2018 Appointment: Ban George WPtel: [facility] (15 min) Moderate 03/04/2018 Patient Education: Patient Medication Summary Completed 03/04/2018 Care Plan: Referral Order SNOMED-CT : 291398602 Pending 01/29/2018 Visit Plan: Hypertension - too well controlled -decrease dose of valsartan from valsartan hctz to plain valsartan, continue with no added salt diet. Pt has been encouraged to exercise daily. The pt has been advised to call the office if there are any acute concerns about change in blood pressure readings at home. Sebaceous cyst - referral to Dr. gR for removal of the cyst. 01/28/2018 Appointment: Ban George [facility]Ptel[facility] (15 min) Moderate 01/28/2018 Patient Education: Patient [...] not improving. 01/11/2018 [facility]ment[facility] [phone] [facility] [facility] 01/11/2018 Patient Education: Patient Medication Summary Completed 01/11/2018 Referral: [facility]g Referral Initiated Referral: [facility] Referral Appointment Requested Instructions Comment . Chest pain - to the left chest, radiating to left arm and back with nausea and some dyspnea, pt does have a cardiac history - pt is to go to the ER for evaluation. . Hypertension - well controlled - continue with current medications, continue with no added salt diet. Pt has been encouraged to exercise daily. The pt has been advised to call the office if there are any acute concerns about change in blood pressure readings at home. follow up appointment with Dr. George in [...]
--- OUTSIDE RECORDS SUMMARY | 2018-05-12 11:10 | XMS REPORT | CCD ---
Author Author Ban [facility] Organization [facility] Address [address] [place] [address] Phone Care Team Providers Care Brim Edge Trimmer Name Role Phone PP Unavailable CCM Unavailable Summary Purpose Interface Exchange Insurance Providers Payer name Policy type / Coverage type Covered republican ID Effective Begin Date Effective End Date Blue Cross Blue [facility] Blue Cross/Blue Shield [id number] 2018 Unknown Family history Grandmother Diagnosis Age [...] semi retired 01/11/[address]: 3100814 Former smoker 01/11/[address]: 270686571 Never drinks alcohol 01/11/2018 Allergies, Adverse Reactions, [...] Start Date Stop Date Status Fill Instructions amlodipine 10 mg tablet RxNorm: 434066 1 Tablet(s) PO daily 01/201910/29/2018 Active amlodipine 10 mg tablet RxNorm: 620546 1 Tablet(s) PO daily 01/201905/02/2018 Inactive losartan 100 mg tablet RxNorm: 081194 1 Tablet(s) PO daily 02/26/2019 Active d/c valsartan amlodipine 2.5 mg tablet RxNorm: 200292 1 Tablet(s) PO daily 05/02/2018 Inactive losartan 100 mg tablet RxNorm: 928825 1 Tablet(s) PO daily 09/201703/03/2018 Inactive d/c valsartan losartan 100 mg tablet RxNorm: 109972 1 Tablet(s) PO daily 09/201702/25/2018 Inactive d/c valsartan valsartan 320 mg tablet RxNorm: 129011 1 Tablet(s) PO daily 10/201702/25/2018 Inactive this repalces his valsartan/hctz mupirocin 2 % topical ointment RxNorm: 190624 1 Application TOP BID 01/11/2018 01/17/2018 Inactive doxycycline hyclate 100 mg tablet RxNorm: 0240796 1 Tablet(s) PO BID 01/11/2018 01/20/2018 Inactive naproxen 500 mg tablet RxNorm: 969850 1 Tablet(s) PO BID 201701/15/2018 Inactive ceftriaxone 500 mg solution for injection RxNorm: 8948559 Inj 01/11/2018 01/11/2018 Inactive Yair Childrens Aspirin 81 mg chewable tablet RxNorm: 790195 1 Tablet(s) PO daily No Start Date Active Advil 200 mg tablet RxNorm: 240614 1 Tablet(s) PO BID No Start Date Active valsartan 320 mg-hydrochlorothiazide 25 mg tablet RxNorm: 745098 1 Tablet(s) PO daily No Start Date 01/27/2018 Inactive amlodipine 2.5 mg tablet RxNorm: 488270 1 Tablet(s) PO daily No Start Date 03/03/2018 Inactive Medication Administered Medication Codes Instructions Start Date Status ceftriaxone 500 mg solution for injection RxNorm: 3390778 01/11/2018 No longer Active Immunizations No Immunization data Assessments Condition Codes Effective Dates Chest pain, unspecified ICD-10: R07.9 ICD-9: 786.50 03/26/2018 Essential (primary) hypertension ICD-10: I10 ICD-9: 401.1 03/04/2018 Epidermal cyst ICD-10: L72.0 ICD-9: 706.2 01/28/2018 Synovial cyst of popliteal space [Childers], right knee ICD-10 : M71.21 ICD-9: 727.51 01/11/2018 Cutaneous abscess of neck ICD-10: L02.11 ICD-9: 682.1 01/11/2018 Reason For Visit Reason For Visit [...] 1: 154/90 Code: 8480-6 BMI: 29.8 Code: 36563-5 Heart Rate 1: 63 bpm Height: 5'8" SpO2: 96% Weight: 196 lbs 03/04/2018 Blood Pressure 1: 144/76 Code : 8480-6 BMI: 28.9 Code : 90660-8 Heart Rate 1 : 67 bpm Height: 5'8" SpO2: 98% Weight: 190 lbs 01/28/2018 Blood Pressure 1: 138/90 Code : 8480-6 BMI: 29.2 Code : 79280-6 Heart Rate 1 : 84 bpm Height: 5'8" SpO2: 97% Weight: 192 lbs 01/11/2018 Blood Pressure 1: 130/78 Code : 8480-6 BMI: 29.5 Code : 17349-5 Heart Rate 1 : 80 bpm Height: [...] Chest pain, unspecified[ICD10: R07.9] [facility] CPT-4: 21852 03/26/2018 ([id number]) [id number] EST. PATIENT, LEVEL III Diagnosis: Essential (primary) hypertension[ICD10: I10] [facility] CPT-4: 35927 03/04/2018 ([id number]) [id number] EST. PATIENT, LEVEL III Diagnosis: Essential (primary) hypertension[ICD10: I10] Diagnosis: Epidermal cyst[ICD10: L72.0] [facility] CPT- 4: 14437 01/28/2018 OFFICE VISIT, NEW - LEVEL 4 Diagnosis: Essential (primary) hypertension[ICD10: I10] Diagnosis: Cutaneous abscess of neck[ICD10: L02.11] Diagnosis: Synovial cyst of popliteal space [Childers], right knee[ICD10: M71.21] [facility] CPT-4: 88782 01/11/2018 Plan of Care Planned Activity Notes Codes Status Date Visit Plan: Chest pain - to the left chest, radiating to left arm and back with nausea and some dyspnea, pt does have a cardiac history - pt is to go to the ER for evaluation. 03/26/2018 Appointment: Jacki Serrano WPtel: [facility] (15 min) Moderate 03/26/2018 Patient Education: Patient Medication Summary Completed 03/26/2018 Visit Plan: Hypertension - well controlled - continue with current medications, continue with no added salt diet. Pt has been encouraged to exercise daily. The pt has been advised to call the office if there are any acute concerns about change in blood pressure readings at home. 03/04/2018 Appointment: Ban George WPtel: [address] [place], [place] [id number] (15 min) Moderate 03/04/2018 Patient Education: Patient Medication Summary Completed 03/04/2018 Care Plan: Referral Order SNOMED-CT : [id number] Pending 01/29/2018 Visit Plan: Hypertension - too [...] the cyst. 01/28/2018 Appointment: Ban George WPtel: [facility] (15 min) Moderate 01/28/2018 Patient Education: Patient [...] not improving. 01/11/2018 Appointment: Jacki Serrano WPtel: [address] [place], [place] [address] New Patient 01/11/2018 Patient Education: Patient Medication [...]
--- OUTSIDE RECORDS SUMMARY | 2018-05-12 11:11 | XMS REPORT | CCD ---
Author Author Ban [facility] Organization [facility] Address [address] [place] [address] Phone Care Team Providers Care Corn Breeder Name Role Phone PP Unavailable CCM Unavailable Summary Purpose Interface Exchange Insurance Providers Payer name Policy type / Coverage type Covered alliance party ID Effective Begin Date Effective End Date Blue Cross Blue [facility] Blue Cross/Blue Shield [id number] 2018 Unknown Family history Grandmother Diagnosis Age [...] semi retired 01/11/[address]: 6717379 Former smoker 01/11/[address]: 799983951 Never drinks alcohol 01/11/2018 Allergies, Adverse Reactions, [...] Fill Instructions losartan 100 mg tablet RxNorm: 961908 1 Tablet(s) PO daily 02/26/2019 Active d/c valsartan amlodipine 2.5 mg tablet RxNorm: 470977 1 Tablet(s) PO daily 02/26/2019 Active losartan 100 mg tablet RxNorm: 478188 1 Tablet(s) PO daily 09/201703/03/2018 Inactive d/c valsartan losartan 100 mg tablet RxNorm: 238362 1 Tablet(s) PO daily 09/201702/25/2018 Inactive d/c valsartan valsartan 320 mg tablet RxNorm: 318800 1 Tablet(s) PO daily 10/201702/25/2018 Inactive this repalces his valsartan/hctz mupirocin 2 % topical ointment RxNorm: 106608 1 Application TOP BID 01/11/2018 01/17/2018 Inactive doxycycline hyclate 100 mg tablet RxNorm: 2434866 1 Tablet(s) PO BID 01/11/2018 01/20/2018 Inactive naproxen 500 mg tablet RxNorm: 477029 1 Tablet(s) PO BID 201701/15/2018 Inactive ceftriaxone 500 mg solution for injection RxNorm: 5908171 Inj 01/11/2018 01/11/2018 Inactive Yair Childrens Aspirin 81 mg chewable tablet RxNorm: 608822 1 Tablet(s) PO daily No Start Date Active Advil 200 mg tablet RxNorm: 665679 1 Tablet(s) PO BID No Start Date Active valsartan 320 mg-hydrochlorothiazide 25 mg tablet RxNorm: 802904 1 Tablet(s) PO daily No Start Date 01/27/2018 Inactive amlodipine 2.5 mg tablet RxNorm: 792655 1 Tablet(s) PO daily No Start Date 03/03/2018 Inactive Medication Administered Medication Codes Instructions Start Date Status ceftriaxone 500 mg solution for injection RxNorm: 2079641 01/11/2018 No longer Active Immunizations No Immunization [...] 1: 154/90 Code: 8480-6 BMI: 29.8 Code: 79346-0 Heart Rate 1: 63 bpm Height: 5'8" SpO2: 96% Weight: 196 lbs 03/04/2018 Blood Pressure 1: 144/76 Code : 8480-6 BMI: 28.9 Code : 00859-8 Heart Rate 1 : 67 bpm Height: 5'8" SpO2: 98% Weight: 190 lbs 01/28/2018 Blood Pressure 1: 138/90 Code : 8480-6 BMI: 29.2 Code : 62415-1 Heart Rate 1 : 84 bpm Height: 5'8" SpO2: 97% Weight: 192 lbs 01/11/2018 Blood Pressure 1: 130/78 Code : 8480-6 BMI: 29.5 Code : 35076-0 Heart Rate 1 : 80 bpm Height: [...] Chest pain, unspecified[ICD10: R07.9] Jacki George MD, [facility] CPT-4: 56213 03/26/2018 ([id number]) 97748 EST. PATIENT, LEVEL III Diagnosis: Essential (primary) hypertension[ICD10: I10] [facility] CPT-4: 47418 03/04/2018 [id number] 18557 EST. PATIENT, LEVEL III Diagnosis: Essential (primary) hypertension[ICD10: I10] Diagnosis: Epidermal cyst[ICD10: L72.0] Ban George MD, [facility] CPT- 4: 89489 01/28/2018 OFFICE VISIT, NEW - LEVEL 4 Diagnosis: Essential (primary) hypertension[ICD10: I10] Diagnosis: Cutaneous abscess of neck[ICD10: L02.11] Diagnosis: Synovial cyst of popliteal space [Childers], right knee[ICD10: M71.21] Jacki George MD, [facility] CPT-4: 71899 01/11/2018 Plan of Care Planned Activity Notes [...] home. 03/04/2018 Appointment: Ban George WPtel: [facility] (15 min) Moderate 03/04/2018 Patient Education: Patient Medication Summary Completed 03/04/2018 Care Plan: Referral Order SNOMED-CT : 825747897 Pending 01/29/2018 Visit Plan: Hypertension - too [...] cyst. 01/28/2018 Appointment: Ban George WPtel[facility] (15 min) Moderate 01/28/2018 Patient [...] improving. 01/11/2018 [facility] [address] [facility] [facility] 01/11/2018 Patient Education: Patient [...]
--- OUTSIDE RECORDS SUMMARY | 2018-05-12 11:11 | XMS REPORT | CCD ---
Author Author Ban [facility] Organization [facility] Address [address] [place] [address] Phone Care Team Providers Care Glove Parts Inspector Name Role Phone PP Unavailable CCM Unavailable Summary Purpose Interface Exchange Insurance Providers Payer name Policy type / Coverage type Covered constitution party ID Effective Begin Date Effective End Date Blue Cross Blue [facility] Blue Cross/Blue Shield [id number] 2018 Unknown Family history Grandmother Diagnosis Age [...] semi retired 01/11/[address]: 7273714 Former smoker 01/11/[address]: 043587139 Never drinks alcohol 01/11/2018 Allergies, Adverse Reactions, Alerts Substance Reaction Codes Entered Date Inactivated Date Status NO KNOWN DRUG ALLERGIES Unknown 01/11/2018 No Inactive Date Active Past Medical History Illness Codes Condition Status Onset Date Resolved Date Essential (primary) hypertension ICD-9: 401.1 ICD-10: I10 Active 01/11/2018 Unknown Epidermal cyst ICD-9: 706.2 ICD-10: L72.0 Active 01/28/2018 Unknown Cutaneous abscess of neck ICD-9: 682.1 ICD-10: L02.11 Active 01/11/2018 Unknown Synovial cyst of popliteal space [Childers], right knee ICD-9: 727.51 ICD-10: M71.21 Active 01/11/2018 Unknown Problems Condition Codes Effective Dates Condition Status Essential (primary) hypertension ICD-9: 401.1 ICD-10: I10 01/11/2018 Active Epidermal cyst ICD-9: 706.2 ICD-10: L72.0 01/28/2018 Active Cutaneous abscess of neck ICD-9: 682.1 ICD-10: L02.11 01/11/2018 Active Synovial cyst of popliteal space [Childers], right knee ICD-9: 727.51 ICD-10: M71.21 01/11/2018 Active Medications Medication Codes Instructions Start Date Stop Date Status Fill Instructions losartan 100 mg tablet RxNorm: 072347 1 Tablet(s) PO daily 02/26/2019 Active d/c valsartan amlodipine 2.5 mg tablet RxNorm: 083166 1 Tablet(s) PO daily 02/26/2019 Active losartan 100 mg tablet RxNorm: 424392 1 Tablet(s) PO daily 09/201703/03/2018 Inactive d/c valsartan losartan 100 mg tablet RxNorm: 177942 1 Tablet(s) PO daily 09/201702/25/2018 Inactive d/c valsartan valsartan 320 mg tablet RxNorm: 227932 1 Tablet(s) PO daily 10/201702/25/2018 Inactive this repalces his valsartan/hctz mupirocin 2 % topical ointment RxNorm: 279314 1 Application TOP BID 01/11/2018 01/17/2018 Inactive doxycycline hyclate 100 mg tablet RxNorm: 7590982 1 Tablet(s) PO BID 01/11/2018 01/20/2018 Inactive naproxen 500 mg tablet RxNorm: 787309 1 Tablet(s) PO BID 201701/15/2018 Inactive ceftriaxone 500 mg solution for injection RxNorm: 1063681 Inj 01/11/2018 01/11/2018 Inactive Yair Childrens Aspirin 81 mg chewable tablet RxNorm: 062852 1 Tablet(s) PO daily No Start Date Active Advil 200 mg tablet RxNorm: 336885 1 Tablet(s) PO BID No Start Date Active valsartan 320 mg-hydrochlorothiazide 25 mg tablet RxNorm: 561930 1 Tablet(s) PO daily No Start Date 01/27/2018 Inactive amlodipine 2.5 mg tablet RxNorm: 996489 1 Tablet(s) PO daily No Start Date 03/03/2018 Inactive Medication Administered Medication Codes Instructions Start Date Status ceftriaxone 500 mg solution for injection RxNorm: 4287305 01/11/2018 No longer Active Immunizations No Immunization data Assessments Condition Codes Effective Dates Essential (primary) hypertension ICD-10: I10 ICD-9: 401.1 03/04/2018 Epidermal cyst ICD-10: L72.0 ICD-9: 706.2 01/28/2018 Cutaneous abscess of neck ICD-10: L02.11 ICD-9: 682.1 01/11/2018 Synovial cyst of popliteal space [Childers], right knee ICD-10 : M71.21 ICD-9: 727.51 01/11/2018 Reason For Visit Reason For Visit Effective Dates Notes blood pressure followup 03/04/2018 blood pressure followup [...] CPT-4: J0696 01/11/2018 Vital Signs Date Vital 03/04/2018 Blood Pressure 1: 144/76 Code : 8480-6 BMI: 28.9 Code : 13137-2 Heart Rate 1 : 67 bpm Height: 5'8" SpO2: 98% Weight: 190 lbs 01/28/2018 Blood Pressure 1: 138/90 Code : 8480-6 BMI: 29.2 Code : 45296-1 Heart Rate 1 : 84 bpm Height: 5'8" SpO2: 97% Weight: 192 lbs 01/11/2018 Blood Pressure 1: 130/78 Code : 8480-6 BMI: 29.5 Code : 52075-3 Heart Rate 1 : 80 bpm Height: 5'8" SpO2: 97% Weight: 194 lbs Functional Status No Functional Status data History of Present Illness Symptom Name Status Result Effective Date Notes Quality intermittent 03/04/2018 None Onset and Resolution [...] data Encounters Encounter Performer Location Codes Date (58475) 46063 EST. PATIENT, LEVEL III Diagnosis: Essential (primary) hypertension[ICD10: I10] [facility] CPT-4: 90058 03/04/2018 (24122 26997 EST. PATIENT, LEVEL III Diagnosis: Essential (primary) hypertension[ICD10: I10] Diagnosis: Epidermal cyst[ICD10: L72.0] [facility] CPT- 4: 29830 01/28/2018 OFFICE VISIT, NEW - LEVEL 4 Diagnosis: Essential (primary) hypertension[ICD10: I10] Diagnosis: Cutaneous abscess of neck[ICD10: L02.11] Diagnosis: Synovial cyst of popliteal space [Childers], right knee[ICD10: M71.21] [facility] CPT-4: 63432 01/11/2018 Plan of Care Planned Activity Notes Codes Status Date Visit Plan: Hypertension - well controlled - continue with current medications, continue with no added salt diet. Pt has been encouraged to exercise daily. The pt has been advised to call the office if there are any acute concerns about change in blood pressure readings at home. 03/04/2018 Patient Education: Patient Medication Summary Completed 03/04/2018 Care Plan: Referral Order SNOMED-CT : 968282075 Pending 01/29/2018 Visit Plan: Hypertension - too [...] the cyst. 01/28/2018 Appointment: Ban George WPtel: [address] [place], [place] [address] (15 min) Moderate 01/28/2018 Patient Education: Patient [...] not improving. 01/11/2018 Appointment: Jacki Serrano [facility]Ptel[facility] [facility] 01/11/2018 Patient Education: Patient Medication Summary Completed 01/11/2018 Referral: Figueroa Rg Referral Initiated Referral: Figueroa Rg Referral Appointment Requested Instructions Comment . Hypertension - well controlled - continue [...]
--- OUTSIDE RECORDS SUMMARY | 2018-05-12 11:11 | XMS REPORT | CCD ---
Author Author Ban [facility] Organization [facility] Address [address] [place] [address] Phone Care Team Providers Care Finished Yarn Examiner Name Role Phone PP Unavailable CCM Unavailable Summary Purpose Interface Exchange Insurance Providers Payer name Policy type / Coverage type Covered constitution party ID Effective Begin Date Effective End Date Blue Cross Blue [facility] Blue Cross/Blue Shield [id number] 2018 Unknown Family history Grandmother Diagnosis Age [...] semi retired 01/11/[address]: 3778048 Former smoker 01/11/[address]: 381962381 Never drinks alcohol 01/11/2018 Allergies, Adverse Reactions, [...] Fill Instructions losartan 100 mg tablet RxNorm: 526646 1 Tablet(s) PO daily 09/201706/25/2018 Active d/c valsartan losartan 100 mg tablet RxNorm: 391219 1 Tablet(s) PO daily 09/201702/25/2018 Inactive d/c valsartan valsartan 320 mg tablet RxNorm: 180801 1 Tablet(s) PO daily 10/201702/25/2018 Inactive this repalces his valsartan/hctz mupirocin 2 % topical ointment RxNorm: 470888 1 Application TOP BID 01/11/2018 01/17/2018 Inactive doxycycline hyclate 100 mg tablet RxNorm: 7598380 1 Tablet(s) PO BID 01/11/2018 01/20/2018 Inactive naproxen 500 mg tablet RxNorm: 824291 1 Tablet(s) PO BID 201701/15/2018 Inactive ceftriaxone 500 mg solution for injection RxNorm: 6756461 Inj 01/11/2018 01/11/2018 Inactive Yair Childrens Aspirin 81 mg chewable tablet RxNorm: 049365 1 Tablet(s) PO daily No Start Date Active amlodipine 2.5 mg tablet RxNorm: 403848 1 Tablet(s) PO daily No Start Date Active Advil 200 mg tablet RxNorm: 891361 1 Tablet(s) PO BID No Start Date Active valsartan 320 mg-hydrochlorothiazide 25 mg tablet RxNorm: 304493 1 Tablet(s) PO daily No Start Date 01/27/2018 Inactive Medication Administered Medication Codes Instructions Start Date Status ceftriaxone 500 mg solution for injection RxNorm: 0962435 01/11/2018 No longer Active Immunizations No Immunization data Assessments Condition Codes Effective Dates Epidermal cyst ICD-10: L72.0 ICD-9: 706.2 01/28/2018 Essential (primary) hypertension ICD-10: I10 ICD-9: 401.1 01/28/2018 Synovial cyst of popliteal space [Childers], [...] Code : 8480-6 BMI: 29.2 Code : 33967-0 Heart Rate 1 : 84 bpm Height: 5'8" SpO2: 97% Weight: 192 lbs 01/11/2018 Blood Pressure 1: 130/78 Code : 8480-6 BMI: 29.5 Code : 74079-3 Heart Rate 1 : 80 bpm Height: [...] data Encounters Encounter Performer Location Codes Date (34992) 20333 EST. PATIENT, LEVEL III Diagnosis: Essential (primary) hypertension[ICD10: I10] Diagnosis: Epidermal cyst[ICD10: L72.0] [facility] CPT- 4: 14421 01/28/2018 OFFICE VISIT, NEW - LEVEL 4 Diagnosis: Essential (primary) hypertension[ICD10: I10] Diagnosis: Cutaneous abscess of neck[ICD10: L02.11] Diagnosis: Synovial cyst of popliteal space [Childers], right knee[ICD10: M71.21] [facility] CPT-4: 76277 01/11/2018 Plan of Care Planned Activity Notes Codes Status Date Care Plan: Referral Order SNOMED-CT : [id number] Pending 01/29/2018 Visit Plan: Hypertension - too [...] the cyst. 01/28/2018 App[facility]ment: [facility] [address] [facility] (15 min) Moderate 01/28/2018 Patient Education: [...] not improving. 01/11/2018 Appointment: Jacki Serrano WPtel: [facility] [facility] 01/11/2018 Patient Education: Patient Medication Summary Completed 01/11/2018 Referral: Figueroa Rg Referral Initiated Referral: Figueroa Rg Referral Appointment Requested Instructions Comment follow up [...]
--- OUTSIDE RECORDS SUMMARY | 2018-05-12 11:12 | XMS REPORT | Continuity of Care Document ---
Author Author [facility] Address Unknown Phone Unavailable Allergies Active Description Code Type Severity Reaction Onset Reported/Identified Relationship to Patient Clinical Status Yes No Known Drug Allergies [id number] N/A N/A Yes No Known Drug Allergies [id number] Drug Allergy Unknown N/A 08/06/2016 Medications There [...] 08/13/2016 NATHAN MERCEDES MD Ot Z79.899 OTHER NURSING HOME (CURRENT) DRUG THERAPY 08/14/2016 NATHAN MERCEDES MD [...] 08/14/2016 NATHAN MERCEDES MD Ot Z79.899 OTHER SOLAR INSTALLER TECHNICIAN (CURRENT) DRUG THERAPY 08/15/2016 NATHAN MERCEDES MD [...] 08/15/2016 NATHAN MERCEDES MD Ot Z79.899 OTHER SOLAR INSTALLER TECHNICIAN (CURRENT) DRUG THERAPY 08/19/2016 NATHAN MERCEDES MD [...] 08/19/2016 NATHAN MERCEDES MD Ot Z79.899 OTHER SOLAR INSTALLER TECHNICIAN (CURRENT) DRUG THERAPY 09/03/2016 NATHAN MERCEDES MD [...] DAREN CAMPBELL, NATHAN P Ot Z79.899 OTHER SOLAR INSTALLER TECHNICIAN (CURRENT) DRUG THERAPY 11/19/2016 S [id number] Pain in left shoulder 11/19/2016 P I51805 Incomplete rotator cuff tear or rupture of [...] UNSPECIFIED 12/18/2017 Ot R07.9 CHEST PAIN, UNSPECIFIED 02/05/2018 VICKY CAMPBELL, ALLISON Han Ot Z01.818 ENCOUNTER FOR OTHER PREPROCEDURAL EXAMIN 02/08/2018 VICKY CAMPBELL, ALLSION Han Ot Z01.818 ENCOUNTER FOR OTHER PREPROCEDURAL EXAMIN 02/10/2018 VICKY CAMPBELL, ALLISON Han Ot I10 ESSENTIAL (PRIMARY) HYPERTENSION 02/10/2018 VICKY CAMPBELL, ALLISON Han Ot L72.3 SEBACEOUS CYST 02/10/2018 VICKY CAMPBELL, ALLISON Han Ot Z79.82 SOLAR INSTALLER TECHNICIAN (CURRENT) USE OF ASPIRIN 02/10/2018 VICKY CAMPBELL, ALLISON Han Ot Z79.899 OTHER SOLAR INSTALLER TECHNICIAN (CURRENT) DRUG THERAPY 02/10/2018 VICKY CAMPBELL, ALLISON Han Ot Z87.891 PERSONAL HISTORY OF NICOTINE DEPENDENCE 02/16/2018 VICKY CAMPBELL, ALLISON Han Ot I10 ESSENTIAL (PRIMARY) HYPERTENSION 02/16/2018 VICKY CAMPBELL, ALLISON Han Ot L72.3 SEBACEOUS CYST 02/16/2018 VICKY CAMPBELL, ALLISON Han Ot Z79.82 SOLAR INSTALLER TECHNICIAN (CURRENT) USE OF ASPIRIN 02/16/2018 VICKY CAMPBELL, ALLISON Han Ot Z79.899 OTHER SOLAR INSTALLER TECHNICIAN (CURRENT) DRUG THERAPY 02/16/2018 VICKY CAMPBELL, ALLISON Han Ot Z87.891 PERSONAL HISTORY OF NICOTINE DEPENDENCE 03/10/2018 Ot R06.00 DYSPNEA, UNSPECIFIED 03/10/2018 Ot R07.9 CHEST PAIN, UNSPECIFIED 03/26/2018 MARCE ANDERSON MD Ot I10 ESSENTIAL (PRIMARY) HYPERTENSION 03/26/2018 MARCE ANDERSON MD Ot R07.9 CHEST PAIN, UNSPECIFIED 03/26/2018 MARCE ANDERSON MD Ot Z79.82 NURSING HOME (CURRENT) USE OF ASPIRIN 03/26/2018 MARCE ANDERSON MD Ot Z82.49 FAMILY HX OF ISCHEM HEART DIS AND OTH DI 03/26/2018 MARCE ANDERSON MD Ot Z87.891 PERSONAL HISTORY OF NICOTINE DEPENDENCE 04/01/2018 MARCE ANDERSON MD Ot I10 ESSENTIAL (PRIMARY) HYPERTENSION 04/01/2018 MARCE ANDERSON MD Ot R07.9 CHEST PAIN, UNSPECIFIED 04/01/2018 MARCE ANDERSON MD Ot Z79.82 NURSING HOME (CURRENT) USE OF ASPIRIN 04/01/2018 MARCE ANDERSON MD T Ot Z82.49 FAMILY HX OF ISCHEM HEART DIS AND OTH DI 04/01/2018 MARCE ANDERSON MD Ot Z87.891 PERSONAL HISTORY OF NICOTINE DEPENDENCE 05/04/2018 DYLAN SEN DO S Ot I27.20 PULMONARY HYPERTENSION, UNSPECIFIED 05/04/2018 DYLAN SEN DO S Ot I34.0 NONRHEUMATIC MITRAL (VALVE) INSUFFICIENC 05/04/2018 DYLAN SEN DO S Ot R07.9 CHEST PAIN, UNSPECIFIED 05/04/2018 Ot R06.00 DYSPNEA, UNSPECIFIED 05/04/2018 Ot R07.9 CHEST PAIN, UNSPECIFIED Procedures There is no data. Results Test Result Range Methicillin resistant Staphylococcus aureus (MRSA) screening culture - 13:48 Methicillin resistant Staphylococcus aureus (MRSA) screening culture NEG NR Methicillin resistant Staphylococcus aureus (MRSA) screening culture - 09:40 Methicillin resistant Staphylococcus aureus (MRSA) screening culture NEG NRG Complete blood count (CBC) with automated white blood cell (WBC) differential - 03/26/18 09:42 Blood leukocytes automated count (number/volume) 8.2 10*3/uL 4.3-11.0 Blood erythrocytes automated count (number/volume) 4.56 10*6/uL 4.35-5.85 Venous blood hemoglobin measurement (mass/volume) 13.4 g/dL 13.3-17.7 Blood hematocrit (volume fraction) 39 % 40-54 Automated erythrocyte mean corpuscular volume 85 [foz_us] 80-99 Automated erythrocyte mean corpuscular hemoglobin (mass per erythrocyte) 29 pg 25-34 Automated erythrocyte mean corpuscular hemoglobin concentration measurement ( mass/volume) 35 g/dL 32-36 Automated erythrocyte distribution width ratio 15.2 % 10.0-14.5 Automated blood platelet count (count/volume) 216 10*3/uL 130-400 Automated blood platelet mean volume measurement 11.4 [foz_us] 7.4-10.4 Automated blood neutrophils/100 leukocytes 60 % 42-75 Automated blood lymphocytes/100 leukocytes 27 % 12-44 Blood monocytes/100 leukocytes 9 % 0-12 Automated blood eosinophils/100 leukocytes 3 % 0-10 Automated blood basophils/100 leukocytes 1 % 0-10 Blood neutrophils automated count (number/volume) 4.9 10*3 1.8-7.8 Blood lymphocytes automated count (number/volume) 2.2 10*3 1.0-4.0 Blood monocytes automated count (number/volume) 0.7 10*3 0.0-1.0 Automated eosinophil count 0.2 10*3/uL 0.0-0.3 Automated blood basophil count (count/volume) 0.1 10*3/uL 0.0-0.1 PT panel in platelet poor plasma by coagulation assay - 03/26/18 09:42 Prothrombin time (PT) in platelet poor plasma by coagulation assay 13.5 s 12.2-14.7 INR in platelet poor plasma or blood by coagulation assay 1.0 0.8-1.4 Activated partial thromboplastin time (aPTT) in platelet poor plasma bycoagulation assay - 03/26/18 09:42 Activated partial thromboplastin time (aPTT) in platelet poor plasma bycoagulation assay 28 s 24-35 Comprehensive metabolic panel - 03/26/18 09:42 Serum or plasma sodium measurement (moles/volume) 141 mmol/L 135-145 Serum or plasma potassium measurement (moles/volume) 3.8 mmol/L 3.6-5.0 Serum or plasma chloride measurement (moles/volume) 107 mmol/L 98-107 Carbon dioxide 24 mmol/L 21-32 Serum or plasma anion gap determination (moles/volume) 10 mmol/L 5-14 Serum or plasma urea nitrogen measurement (mass/volume) 16 mg/dL 7-18 Serum or plasma creatinine measurement (mass/volume) 1.02 mg/dL 0.60-1.30 Serum or plasma urea nitrogen/creatinine mass ratio 16 NRG Serum or plasma creatinine measurement with calculation of estimated glomerular filtration rate > NRG Serum or plasma glucose measurement (mass/volume) 100 mg/dL 70-105 Serum or plasma calcium measurement (mass/volume) 9.6 mg/dL 8.5-10.1 Serum or plasma total bilirubin measurement (mass/volume) 0.4 mg/dL 0.1-1.0 Serum or plasma alkaline phosphatase measurement (enzymatic activity/volume) 64 U/L 40-136 Serum or plasma aspartate aminotransferase measurement (enzymatic activity/ volume) 16 U/L 5-34 Serum or plasma alanine aminotransferase measurement (enzymatic activity/volume ) 19 U/L 0-55 Serum or plasma protein measurement (mass/volume) 7.2 g/dL 6.4-8.2 Serum or plasma albumin measurement (mass/volume) 4.5 g/dL 3.2-4.5 CALCIUM CORRECTED 9.2 mg/dL 8.5-10.1 Magnesium - 03/26/18 09:42 Magnesium 2.2 mg/dL 1.8-2.4 Serum or plasma troponin i.cardiac measurement (mass/volume) - 03/26/18 09:42 Serum or plasma troponin i.cardiac measurement (mass/volume) < ng/ mL <0.028 Myoglobin, serum - 03/26/18 09:42 Myoglobin, serum 72.9 ng/mL 10.0-92.0 Encounters ACCT No. Visit Date/Time Discharge Status Pt. Type Provider Facility Loc./Unit Complaint [id number] 04/01/2017 10:36:50 04/01/2017 23:59:59 CLS Outpatient Prudencio, V S [id number] 09/25/2016 09:06:32 09/25/2016 23:59:59 CLS Outpatient Prudencio, V S [id number] 04/15/2016 09:41:25 04/15/2016 23:59:59 CLS Outpatient Prudencio, V S [id number] 12/24/2015 11:56:17 12/24/2015 23:59:59 CLS Outpatient Prudencio, V S [id number] 12/19/2015 17:08:40 12/19/2015 23:59:59 CLS Outpatient Prudencio, V S [id number] 12/03/2015 09:43:50 12/03/2015 23:59:59 CLS Outpatient Nathan Kramer [id number] 11/28/2015 12:05:57 11/28/2015 23:59:59 CLS Outpatient Prudencio, V S [id number] 11/12/2015 10:30:09 11/12/2015 23:59:59 CLS Outpatient Nathan Kramer [id number] 11/07/2015 11:45:08 11/07/2015 23:59:59 CLS Outpatient Prudencio, V S [id number] 10/08/2015 11:01:47 10/08/2015 23:59:59 CLS Outpatient Nathan Kramer [id number] 05/18/2013 15:35:51 05/18/2013 23:59:[address] [id number] 05/04/2013 09:42:53 05/04/2013 23:59:[address] [id number] 05/05/2018 11:29:00 05/05/2018 23:59:59 CLS Outpatient EDWIN SAUL MD [facility] CARD ANTERIOR CHEST WALL PAIN [id number] 04/07/2018 08:20:00 04/07/2018 23:59:59 CLS Preadmit EDWIN SAUL MD [facility] CARD ANTERIOR CHEST WALL PAIN ,HTN [id number] 03/26/2018 09:18:00 03/26/2018 11:00:00 DIS Emergency MONICA CAMPBELL, MARCE Clarke [facility] ER CHEST PAIN;ARM PAIN; LIGHT HEADED;NAUSEA [id number] 02/10/2018 09:17:00 02/10/2018 12:30:00 DIS Outpatient ALLISON PERRY MD [facility] SDC SEBACEOUS CYST [id number] 02/05/2018 06:12:00 02/05/2018 15:03:00 DIS Outpatient ALLISON PERRY MD [facility] PREOP SEBACEOUS CYST [id number] 06/09/2017 10:43:00 06/09/2017 23:59:59 CLS Outpatient DYLAN SEN DO [facility] CARD CHEST PAIN [id number] 08/13/2016 06:00:00 08/13/2016 11:00:00 DIS Outpatient NATHAN MERCEDES MD [facility] SDC SUPERIOR GLENOID LABRUM LESION LEFT SHOULDER [id number] 08/06/2016 13:31:00 08/06/2016 13:55:00 DIS Outpatient NATHAN MERCEDES MD [facility] PREOP SUPERIOR GLENOID LABRUM LESION LEFT SHOULDER [id number] 05/12/2018 13:00:00 PEN Preadmit KG CAMPBELL, EDWIN Vogel [facility] CATH ABN STRESS TEST [id number] 10/27/2017 10:09:00 Document Registration [id number] 01/07/2018 15:04:37 01/07/2018 23:59:59 CLS Outpatient [id number] 01/07/2018 12:59:52 Document Registration [id number] 03/18/2017 11:30:18 Document Registration [id number] 08/15/2016 08:18:00 Document Registration [id number] 11/21/2017 17:19:53 11/21/2017 23:59:59 CLS Outpatient
[2018-05-12 11:33] LABS: HEMOGLOBIN 15.1 G/DL (13.3-17.7); MEAN PLATELET VOLUME 11.7 FL (7.4-10.4); WHITE BLOOD COUNT 8.2 10^3/uL (4.3-11.0)
--- NOTE | 2018-05-12 11:33 | Diagnostic Imaging Report ---
INDICATION: Chest pain, evaluation prior to heart catheterization.. TECHNIQUE: Single view chest 11:22 AM. CORRELATION STUDY: 03/26/2018 FINDINGS: Heart size and vasculature normal. Slight prominent appearance of the mediastinum including the region of the ascending aorta may be tortuous ectatic thoracic aorta. The lungs are clear with no consolidating infiltrate. There is no significant effusion or pneumothorax. IMPRESSION: 1. Stable appearing chest demonstrates no acute abnormality. Dictated by: Dictated on workstation # [id number]
[2018-05-12] MEDS ORDERED: HYDR25TA4 PO (11:36)
[2018-05-12 11:43] LABS: PROTHROMBIN TIME PATIENT 12.7 SEC (12.2-14.7)
[2018-05-12 11:50] LABS: ALANINE AMINOTRANSFERASE 16 U/L (0-55); ALBUMIN 4.7 GM/DL (3.2-4.5); ALKALINE PHOSPHATASE 70 U/L (40-136); BILIRUBIN,TOTAL 0.7 MG/DL (0.1-1.0); BUN/CREATININE RATIO 15; CALCIUM 9.8 MG/DL (8.5-10.1); CARBON DIOXIDE 28 MMOL/L (21-32); CHLORIDE 104 MMOL/L (98-107); CHOLESTEROL 162 MG/DL (< 200); CREATININE SERUM 1.09 MG/DL (0.60-1.30); GFR ESTIMATED > 60; GLUCOSE 94 MG/DL (70-105); HDL CHOLESTEROL 53 MG/DL (40-60); POTASSIUM 3.5 MMOL/L (3.6-5.0); SODIUM 140 MMOL/L (135-145); TOTAL PROTEIN 7.7 GM/DL (6.4-8.2); TRIGLYCERIDES 87 MG/DL (<150); VLDL CHOLESTEROL 17 MG/DL (5-40)
[2018-05-12] MEDS ORDERED: fentaNYL INJECTION 100 MCG/2 ML AMP ONE (12:10)
[2018-05-12] MEDS ORDERED: MIDAZOLAM 5 MG/5 ML (VERSED) VIAL ONE (12:10)
--- NOTE | 2018-05-12 12:17 | Cardiac Procedure Note-CS/ASA ---
Pre-Procedure Note Pre-Op Procedure Note H&P Reviewed The H&P was reviewed, patient examined and no changes noted. Date H&P Reviewed: May 12, 2018 Time H&P Reviewed: 12:17 Conscious Sedation Pre-Proced Time 12:17 ASA Score 3 For ASA 3 and 4: Consider anesthesia and medical clearance. Also, for patients with a history of failed moderate sedation consider anesthesia. Airway Lungs Heart ASA score ASA 1: a normal healthy patient ASA 2: a patient with a mild systemic disease (mid diabetes, controlled hypertension, obesity x ASA 3: a patient with a severe systemic disease that limits activity (angina , COPD, prior Myocardial infarction) ASA 4: a patient with an incapacitating disease that is a constant threat to life (CHF, renal failure) ASA 5: a moribund patient not expected to survive 24 hrs. (ruptured aneurysm) ASA 6: a declared brain- patient whose organs are being harvested. For emergent operations, add the letter E after the classification Mallampati Classification Grade 3 Sedation Plan Analgesia, Amnesia, Plan communicated to team members, Discussed options with patient/fam, Discussed risks with patient/fam The patient is an appropriate candidate to undergo the planned procedure, sedation, and anesthesia. The patient immediately re-assessed prior to indication. EDWIN SAUL MD May 12, 2018 12:17
--- NOTE | 2018-05-12 13:09 | Discharge Inst-Post CATH ---
Discharge Inst-CATH/EP Post Cardiac Cath/EP D/C Inst Follow Up/Plan Appointment with Dr. Mcfadden's office in 4 weeks CARDIAC CATH DISCHARGE INSTRUCTIONS *Hold Metformin for 48 hours post heart cath. ACTIVITY * Go Home directly and rest. * Limit activity of the leg (or wrist if it was used) for 7 days including aerobics, swimming, jogging, bicycling, etc. * Restrict stair-climbing for 7 days if possible, if not, climb up with your non -cath leg, then bring together on the same step. * Avoid lifting, pushing, pulling or excessive movement of the affected extremity for 7 days. * Customary sexual activity may be resumed after 2 days-use caution not to use a position that strains or causes pain to the affected extremity. * No driving for 24 hours. * NO SMOKING. * Avoid straining for bowel movements for 7 days. * Gentle walking on level ground is allowed. * Returning to work will depend on the type of procedure and the results. Your doctor will discuss this with you. CALL YOUR DOCTOR FOR ANY OF THE FOLLOWING: *If bleeding from the puncture site occurs- Apply gentle pressure to site with clean cloth and call your doctor or EMS. * If a knot or lump forms under the skin, increases in size, or causes pain. * If bruising appears to be worsening or moving further down your leg instead of disappearing. * Temperature above 101 F. CARE OF YOUR GROIN INCISION; * Bruising or purple discoloration of the skin near the puncture site is common. * You may shower only, no bathtub bathing for 5 days. Be careful to avoid slipping as your leg may feel stiff. * If a closure device was used on your femoral artery, please see the attached guide regarding care of the device and your leg. * Leave the dressing on, until removed by office staff. CARE OF YOUR WRIST INCISION; * Bruising or purple discoloration of the skin near the puncture site is common. * You may shower. * DO NOT submerge wrist. * Leave dressing on, until removed by office staff.. EDWIN MCFADDEN MD May 12, 2018 13:09
--- NOTE | 2018-05-12 13:14 | Cardiac Cath Report ---
Cardiac Cath Report Physician (s)/Marshmallow Maker (s) Physician EDWIN SAUL MD Pre-Procedure Diagnosis Pre-Procedure Diagnosis: coronary artery disease Post-Procedure Note Procedure Start Date: May 12, 2018 Name of Procedure: left heart catheterization Left ventriculogram Aortic arch angiogram Findings/Procedure Note PROCEDURE NOTE: 62 years old gentleman with history of hypertension, chest pain, had an abnormal stress test, scheduled for cardiac catheterization possible PTCA. After explaining the procedure to the patient, all pros and cons were explained , all questions were answered. The patient signed the consent and then he was placed on the cardiac catheterization laboratory. Groin was prepped SL fashion local anesthesia was used. Sheath placed in the Right femoral artery. Denise right and left catheter were used to access the coronary system. Pigtail was used to access the left ventricular cavity. Left ventriculogram was done Aortic arch angiogram was done due to the fact that there was some tortuosity in the aortic arch during the procedure At the end of the procedure the sheath was removed. Closure device was used FINDINGS: Hemodynamics LV 97/14, end-diastolic pressure 14 Aorta 102/62 mean of 70 ANATOMY: Left Main is free of obstructive disease Left Anterior Descending has mild disease nonobstructive disease Left Circumflex is free of obstructive disease Right Coronory Artery is free of obstructive disease LV Gram is normal in size, systolic function is in the lower normal limits as ejection fraction 50 percent Aorta evaluation done with aortic arch angiogram which showed hypertensive changes in the aortic arch. No dissection or aneurysm, origin of the right innominate artery showed tortuosity with consultation no obstructive disease, left carotid artery is also slightly tortuous with calcification, left subclavian artery appeared to have mild calcification and tortuosity. CONCLUSION: 1. Mild coronary artery disease nonobstructive disease 2. Normal left ventricular size, estimated ejection fraction 50 percent, normal left ventricular end-diastolic pressure 3. Hypertensive changes in the aortic arch with tortuous great vessels of the neck. No dissection or aneurysm DISCUSSION AND RECOMMENDATION: medical therapy is recommended no intervention is needed Anesthesia Type: Conscious Sedation Estimated blood loss (mL): 25 ml Contrast Amount: 60 ml Total Radiation Dose: 627 mGy Post-Procedure Diagnosis Post-operative diagnosis: Coronary artery disease Hypertension Hyperlipidemia Chest pain EDWIN SAUL MD May 12, 2018 13:14
[2018-05-12] MEDS ORDERED: PATIENT MAY USE OWN MEDS, ALL PO SCH (13:15)
== END 2018-05-12 17:50 | disposition home or self-care (01) ==
LOC: CATH 11:01 → SDC 13:30 → CATH 17:50
PROVIDERS: ATTEND Internal Medicine Cardiovascular Disease
DX: I25.10 Atherosclerotic heart disease of native coronary artery without angina pectoris (principal); I10 Essential (primary) hypertension; E78.2 Mixed hyperlipidemia; R07.89 Other chest pain; Z82.49 Family history of ischemic heart disease and other diseases of the circulatory system; Z79.899 Other long term (current) drug therapy; Z79.82 Long term (current) use of aspirin; Z87.891 Personal history of nicotine dependence
CPT/HCPCS: 36221; 36415; 71045; 80053; 80061; 85027; 85610; 85730; 87081; 93458

== ENCOUNTER → 2018-05-28 | Outpatient (CLI) | payer BC ==
[~2018-05-28] MED LIST changes: -HEParin 1000 UNIT/ML (10ML VIAL) FOR BOLUS ONE; +HYDR25TA4 PO; -LIDOCAINE 1% INJ 20 ML 20 ML VIAL ONE; -NS IV 1000 ML 1,000 ML ONE; -NS IV 1000 ML 2,000 ML ONE
== END ==
LOC: CARD 13:31
PROVIDERS: ATTEND Internal Medicine Cardiovascular Disease
DX: R07.89 Other chest pain (principal); I10 Essential (primary) hypertension; E78.2 Mixed hyperlipidemia; L72.3 Sebaceous cyst
CPT/HCPCS: 93306